=== PATIENT | female | born 1965 | race Caucasian/White ===

== ENCOUNTER 2017-11-13 12:29 | Inpatient (IN) ==
[2017-11-13] MEDS ORDERED: Ipratropium/Albuterol Neb 3 ML IH ONE (13:38)
[2017-11-13] MEDS ORDERED: methylPREDNISolone 125 MG/2 ML VIAL IVP ONE (13:39)
--- NOTE | 2017-11-13 13:42 | Emergency Department Note ---
Disposition Clinical Impression: Acute exacerbation of chronic obstructive airways disease Disposition: Admitted As Inpatient Condition: Undetermined General Adult HPI - General Chief complaint: ED Shortness of Breath/Dyspnea Stated complaint: "Cough,MARIO ALBERTO" Time Seen by Provider: 11/13/17 13:27 - History of Present Illness Pain Scale: 7 - Related Data Home Medications Medication Instructions Recorded Confirmed Albuterol Neb [Proventil Neb] 2.5 mg IH Q4HR PRN 10/15/16 11/13/17 Albuterol Sulfate [Albuterol 2 puff IH Q4HR PRN 10/15/16 11/13/17 Inhaler] Furosemide [Lasix] 20 mg PO DAILY 03/08/17 11/13/17 Lisinopril-HCTZ 20-12.5 [Prinzide 2 tab PO DAILY 03/08/17 11/13/17 20-12.5] Metoprolol Succinate 100 mg PO DAILY 03/08/17 11/13/17 Oxycodone HCl 5 mg PO BID PRN 03/08/17 11/13/17 Aspirin Enteric Coated [Aspirin EC] 325 mg PO DAILY 11/13/17 11/13/17 Latanoprost [Xalatan] 1 drop BOTH EYES DAILY 11/13/17 11/13/17 Sertraline [Zoloft] 25 mg PO DAILY 11/13/17 11/13/17 Allergies Allergy/AdvReac Type Severity Reaction Status Date / Time Penicillins Allergy Hives Verified 11/13/17 15:41 Past Medical History - Past Medical History Medical history: Reports: COPD, hypertension, other Surgical history: Reports: , hysterectomy, orthopedic, other, other Psychiatric history: Reports: depression [employer] history: Reports: bilateral tubal ligation - Social History Smoking Status: Current every day smoker Smokeless Tobacco Status: No Alcohol use: Reports: none Drug use: Reports: none Course Vital Signs Temperature 98.4 F 11/13/17 12:55 Pulse Rate 96 11/13/17 12:55 Respiratory Rate 20 11/13/17 12:55 Blood Pressure 186/120 11/13/17 12:55 O2 Sat by Pulse Oximetry 95 11/13/17 12:55 Temperature 98.4 F 11/13/17 12:58 Pulse Rate 111 11/13/17 15:38 Respiratory Rate 18 11/13/17 15:38 Blood Pressure 158/90 11/13/17 15:38 O2 Sat by Pulse Oximetry 94 11/13/17 15:38 Oxygen Delivery Oxygen Delivery Aerosol Mask Medical Decision Making - Lab Data Result diagrams: 11/13/17 14:11 11/13/17 14:11 Lab Results 11/13/17 11/13/17 11/13/17 Range/Units 14:08 14:11 14:11 WBC 7.6 (4.3-11.1) K/mcL RBC 4.90 (3.82-4.97) M/mcL Hgb 14.1 (11.5-15.4) g/dL Hct 43.2 (35.3-44.9) % MCV 88.2 (83.0-100.0) fL MCH 28.8 (28.0-33.3) pg MCHC 32.6 (31.6-35.5) g/dL RDW 13.4 (11.5-14.5) % Plt Count 211 (140-400) K/mcL MPV 9.6 (9.4-12.4) fL Immature Gran % 0.4 (0-4) % Seg Neutrophils % 65.7 % Lymphocytes % 27.0 % Monocytes % 4.5 % Eosinophils % 1.7 % Basophils % 0.7 % Neutrophils # 5.0 (1.6-8.9) K/mcL Lymphocytes # 2.1 (0.6-4.6) K/mcL Monocytes # 0.3 (0.0-1.3) K/mcL Eosinophils # 0.1 (0.0-0.6) K/mcL Basophils # 0.1 (0.0-0.2) K/mcL Sodium 141 (136-145) mEq/L Potassium 3.4 L (3.5-5.1) mEq/L Chloride 102 (98-107) mEq/L Carbon Dioxide 32 H (23-29) mEq/L BUN 7 (6-20) mg/dL Creatinine 0.62 (0.60-1.20) mg/dL Est GFR ( Amer) > 60 (> 60) Est GFR (Non-Af Amer) > 60 (> 60) BUN/Creatinine Ratio 11 (6-26) Glucose 133 H (70-105) mg/dL Calculated Osmolality 292 (280-300) Lactic Acid 1.2 (0.5-2.2) mmol/L Calcium 9.3 (8.6-10.3) mg/dL Troponin I < 0.03 (< 0.04) ng/mL B-Natriuretic Peptide (Less than 100) pg/mL 11/13/17 Range/Units 14:11 WBC (4.3-11.1) K/mcL RBC (3.82-4.97) M/mcL Hgb (11.5-15.4) g/dL Hct (35.3-44.9) % MCV (83.0-100.0) fL MCH (28.0-33.3) pg MCHC (31.6-35.5) g/dL RDW (11.5-14.5) % Plt Count (140-400) K/mcL MPV (9.4-12.4) fL Immature Gran % (0-4) % Seg Neutrophils % % Lymphocytes % % Monocytes % % Eosinophils % % Basophils % % Neutrophils # (1.6-8.9) K/mcL Lymphocytes # (0.6-4.6) K/mcL Monocytes # (0.0-1.3) K/mcL Eosinophils # (0.0-0.6) K/mcL Basophils # (0.0-0.2) K/mcL Sodium (136-145) mEq/L Potassium (3.5-5.1) mEq/L Chloride (98-107) mEq/L Carbon Dioxide (23-29) mEq/L BUN (6-20) mg/dL Creatinine (0.60-1.20) mg/dL Est GFR ( Amer) (> 60) Est GFR (Non-Af Amer) (> 60) BUN/Creatinine Ratio (6-26) Glucose (70-105) mg/dL Calculated Osmolality (280-300) Lactic Acid (0.5-2.2) mmol/L Calcium (8.6-10.3) mg/dL Troponin I (< 0.04) ng/mL B-Natriuretic Peptide 23 (Less than 100) pg/mL Critical Care Time Critical Care Time: Yes Total Critical Care Time: 35 Attestation: Critical care performed: Time is exclusive of separately billable procedures. Time includes: direct patient care, patient reassessment, coordination of patient care, interpretation of data (laboratory data, radiology data, and respiratory data), review of patient's medical records, medical consultation and documentation of patient care. Procedures included in critical care time: Procedures excluded from critical care time: Attestation Statement - Attestation Attestation: I examined this patient and my medical decision-making was reviewed with the Resident Physician. I agree with the documented findings, disposition and treatment plan as described except to the extent set forth below. Patient to the ED complaining of cough swelling shortness of breath. Onset last Monday. Patient states she was working at the [employer] all week. She has had a cough productive of white phlegm. Swelling her feet that she thinks is from being on them in the heat. No cardiac history but she does currently have a loop recorder. On examination she has diffuse expiratory wheezing. Mild edema around her ankles. Plan. Cardiac workup. Two-view chest x-ray. steroids and reevaluate. Patient better after nebs and steroids. Still hypoxic on room air. Admitted to medicine. Chest X-Ray 11/13/17 13:39 IMPRESSION: 1. No active pulmonary disease. 2. Stable cardiomegaly without overt failure. D/ / Suresh Odom MD / Suresh Odom MD Interpreting Provider: Suresh Odom MD
--- NOTE | 2017-11-13 14:04 | Emergency Department Note ---
Disposition Clinical Impression: Acute exacerbation of chronic obstructive airways disease Disposition: Admitted As Inpatient Condition: Undetermined Referrals: Shannon Bourgeois DO [Primary Care Provider] - Forms: ED Satisfaction Letter Time of Disposition: 15:42 SOB HPI - General Chief Complaint: ED Shortness of Breath/Dyspnea Stated Complaint: "Cough,MARIO ALBERTO" Time Seen by Provider: 11/13/17 13:27 Source: patient Mode of arrival: ambulatory Limitations: no limitations Nursing Notes Reviewed: Yes Vital Signs Reviewed: Yes - History of Present Illness 51-year-old female with history of COPD arrives to the emergency department complaining of shortness of breath times the past few days. She has some associated chest pain as well. The patient states that she has a history of COPD and states this is very similar to her COPD exacerbations in the past. The patient states that she has been coughing up white sputum as well. The patient has some exertional component of this as well as some left-sided chest discomfort. The patient does have bilateral lower extremity edema that is new as well. The patient denies any hemoptysis, unilateral [place], recent surgeries or immobilizations, history of DVT or PE. The patient is resting comfortably in the room after receiving a DuoNeb. The patient said she is feeling much better at this time. The patient was mildly hypoxic upon initial evaluation but resting comfortably on room air this time. - Related Data Home Medications Medication Instructions Recorded Confirmed Albuterol Neb [Proventil Neb] 2.5 mg IH Q4HR PRN 10/15/16 11/13/17 Albuterol Sulfate [Albuterol 2 puff IH Q4HR PRN 10/15/16 11/13/17 Inhaler] Furosemide [Lasix] 20 mg PO DAILY 03/08/17 11/13/17 Lisinopril-HCTZ 20-12.5 [Prinzide 2 tab PO DAILY 03/08/17 11/13/17 20-12.5] Metoprolol Succinate 100 mg PO DAILY 03/08/17 11/13/17 Oxycodone HCl 5 mg PO BID PRN 03/08/17 11/13/17 Aspirin Enteric Coated [Aspirin EC] 325 mg PO DAILY 11/13/17 11/13/17 Latanoprost [Xalatan] 1 drop BOTH EYES DAILY 11/13/17 11/13/17 Sertraline [Zoloft] 25 mg PO DAILY 11/13/17 11/13/17 Allergies Allergy/AdvReac Type Severity Reaction Status Date / Time Penicillins Allergy Hives Verified 11/13/17 15:41 All systems ED: reviewed and negative except as stated. Constitutional: Reports: weakness. Denies: fever, chills ENT ED: Denies: dysphagia Cardiovascular: Reports: chest pain, dyspnea on exertion, orthopnea, edema Respiratory: Reports: cough, dyspnea, wheezes, sputum production Gastrointestinal: Denies: abdominal pain, nausea, vomiting Genitourinary: Denies: urgency, dysuria Musculoskeletal: Denies: back pain, neck pain Integumentary: Denies: rash Neurological: Denies: headache Past Medical History - Past Medical History Attestation: Yes The following information was validated with the patient. Source: patient, old records reviewed Medical history: Reports: COPD, hypertension, other Surgical history: Reports: , hysterectomy, orthopedic, other, other Psychiatric history: Reports: depression [employer] history: Reports: bilateral tubal ligation - Social History Smoking Status: Current every day smoker Smokeless Tobacco Status: No Alcohol use: Reports: none Drug use: Reports: none Physical Exam - General Limitations: no limitations General appearance: alert, in distress (mild respiratory) - Head Head exam: atraumatic, normocephalic, normal inspection - Eye Eye exam: Present: normal appearance, PERRL, EOMI - ENT ENT exam: normal exam, normal oropharynx, mucous membranes moist - Neck Neck exam: Present: normal inspection, full ROM, trachea midline - Chest Chest inspection: Present: normal inspection, symmetric chest wall rise - Respiratory Respiratory exam: Present: respiratory distress (mild), wheezes (diffuse) - Cardiovascular Cardiovascular exam: Present: regular rate, normal rhythm, normal heart sounds - Abdominal Exam Abdominal exam: Present: soft, Non-Tender. Absent: tenderness, distention, guarding, rebound, rigidity - Extremities Exam Extremities exam: Present: normal inspection, full ROM, pedal edema (2+). Absent: tenderness - Neurological Exam Neurological exam: Present: alert, oriented X3 - Skin Skin exam: Present: warm, dry, intact, normal color Course Vital Signs Temperature 98.4 F 11/13/17 12:55 Pulse Rate 96 11/13/17 12:55 Respiratory Rate 20 11/13/17 12:55 Blood Pressure 186/120 11/13/17 12:55 O2 Sat by Pulse Oximetry 95 11/13/17 12:55 Temperature 98.4 F 11/13/17 12:58 Pulse Rate 111 11/13/17 15:38 Respiratory Rate 18 11/13/17 15:38 Blood Pressure 158/90 11/13/17 15:38 O2 Sat by Pulse Oximetry 94 11/13/17 15:38 Oxygen Delivery Oxygen Delivery Aerosol Mask Shortness of Breath/Dyspnea - [facility] Narrative Medical decision making narrative: Patient's workup in the emergency department demonstrates findings consistent with COPD exacerbation. The patient's pulse ox was 85% on room air when evaluated on reevaluation. Given the patient's low pulse ox and symptoms, we will admit the patient to the hospital at this time. Accepted by Dr. Quijano. - Lab Data Lab results reviewed: Yes I reviewed the patient's lab results. Result diagrams: 11/13/17 14:11 11/13/17 14:11 Lab Results 11/13/17 11/13/17 11/13/17 Range/Units 14:08 14:11 14:11 WBC 7.6 (4.3-11.1) K/mcL RBC 4.90 (3.82-4.97) M/mcL Hgb 14.1 (11.5-15.4) g/dL Hct 43.2 (35.3-44.9) % MCV 88.2 (83.0-100.0) fL MCH 28.8 (28.0-33.3) pg MCHC 32.6 (31.6-35.5) g/dL RDW 13.4 (11.5-14.5) % Plt Count 211 (140-400) K/mcL MPV 9.6 (9.4-12.4) fL Immature Gran % 0.4 (0-4) % Seg Neutrophils % 65.7 % Lymphocytes % 27.0 % Monocytes % 4.5 % Eosinophils % 1.7 % Basophils % 0.7 % Neutrophils # 5.0 (1.6-8.9) K/mcL Lymphocytes # 2.1 (0.6-4.6) K/mcL Monocytes # 0.3 (0.0-1.3) K/mcL Eosinophils # 0.1 (0.0-0.6) K/mcL Basophils # 0.1 (0.0-0.2) K/mcL Sodium 141 (136-145) mEq/L Potassium 3.4 L (3.5-5.1) mEq/L Chloride 102 (98-107) mEq/L Carbon Dioxide 32 H (23-29) mEq/L BUN 7 (6-20) mg/dL Creatinine 0.62 (0.60-1.20) mg/dL Est GFR ( Amer) > 60 (> 60) Est GFR (Non-Af Amer) > 60 (> 60) BUN/Creatinine Ratio 11 (6-26) Glucose 133 H (70-105) mg/dL Calculated Osmolality 292 (280-300) Lactic Acid 1.2 (0.5-2.2) mmol/L Calcium 9.3 (8.6-10.3) mg/dL Troponin I < 0.03 (< 0.04) ng/mL B-Natriuretic Peptide (Less than 100) pg/mL 11/13/17 Range/Units 14:11 WBC (4.3-11.1) K/mcL RBC (3.82-4.97) M/mcL Hgb (11.5-15.4) g/dL Hct (35.3-44.9) % MCV (83.0-100.0) fL MCH (28.0-33.3) pg MCHC (31.6-35.5) g/dL RDW (11.5-14.5) % Plt Count (140-400) K/mcL MPV (9.4-12.4) fL Immature Gran % (0-4) % Seg Neutrophils % % Lymphocytes % % Monocytes % % Eosinophils % % Basophils % % Neutrophils # (1.6-8.9) K/mcL Lymphocytes # (0.6-4.6) K/mcL Monocytes # (0.0-1.3) K/mcL Eosinophils # (0.0-0.6) K/mcL Basophils # (0.0-0.2) K/mcL Sodium (136-145) mEq/L Potassium (3.5-5.1) mEq/L Chloride (98-107) mEq/L Carbon Dioxide (23-29) mEq/L BUN (6-20) mg/dL Creatinine (0.60-1.20) mg/dL Est GFR ( Amer) (> 60) Est GFR (Non-Af Amer) (> 60) BUN/Creatinine Ratio (6-26) Glucose (70-105) mg/dL Calculated Osmolality (280-300) Lactic Acid (0.5-2.2) mmol/L Calcium (8.6-10.3) mg/dL Troponin I (< 0.04) ng/mL B-Natriuretic Peptide 23 (Less than 100) pg/mL - Radiology Data Radiology results reviewed: Yes I reviewed the patient's radiology results. Chest X-Ray 11/13/17 13:39 IMPRESSION: 1. No active pulmonary disease. 2. Stable cardiomegaly without overt failure. D/ / Suresh Odom MD / Suresh Odom MD Interpreting Provider: Suresh Odom MD - EKG Data EKG attestation: Yes I reviewed and interpreted this EKG. EKG results narrative: Heart rate 85 bpm. Normal sinus rhythm. No ST elevation or ST depression. No acute changes noted.
[2017-11-13 14:22] LABS: Basophils # 0.1 K/mcL (0.0-0.2); Basophils % 0.7 %; Eosinophils # 0.1 K/mcL (0.0-0.6); Eosinophils % 1.7 %; Hematocrit 43.2 % (35.3-44.9); Hemoglobin 14.1 g/dL (11.5-15.4); Immature Granulocytes % 0.4 % (0-4); Lymphocytes # 2.1 K/mcL (0.6-4.6); Mean Corpuscular HGB Conc 32.6 g/dL (31.6-35.5); Mean Corpuscular Hemoglobin 28.8 pg (28.0-33.3); Mean Corpuscular Volume 88.2 fL (83.0-100.0); Mean Platelet Volume 9.6 fL (9.4-12.4); Monocytes # 0.3 K/mcL (0.0-1.3); Monocytes % 4.5 %; Platelet Count 211 K/mcL (140-400); Red Cell Distribution Width 13.4 % (11.5-14.5); Segmented Neutrophils % 65.7 %
[2017-11-13 14:38] LABS: BUN/Creatinine Ratio 11 (6-26); Blood Urea Nitrogen 7 mg/dL (6-20); Calcium 9.3 mg/dL (8.6-10.3); Carbon Dioxide 32 mEq/L (23-29); Chloride 102 mEq/L (98-107); Glucose 133 mg/dL (70-105); Osmolality,Calculated 292 (280-300); Potassium 3.4 mEq/L (3.5-5.1); Sodium 141 mEq/L (136-145); eGFR For Non-African Americans > 60 (> 60)
[2017-11-13 14:39] LABS: Troponin I < 0.03 ng/mL (< 0.04)
[2017-11-13] MEDS ORDERED: Azithromycin 500 MG in D5% in Water 250 ML IVPB ONE (15:38)
[2017-11-13] MEDS ORDERED: Naloxone 0.4 MG/ML INJ IVP PRN (16:27)
--- NOTE | 2017-11-13 16:56 | Internal Med History&Physical ---
<Jerson Alcantar P - Last Filed: 11/13/17 16:49> Date of Encounter: 11/13/17 Time of Encounter: 16:05 Internal Medicine - H&P: HPI Chief complaint: Shortness of breath Admitted From: Home Plans for Post Hospital Care: Home History of present illness: Ms. Vernon is a 51 year old female who presents from home for complaints of shortness of breath for past week getting progressively worse. States shortness of breath has improved since breathing treatment in ER. Also complains of productive cough with white phlegm and chest pain with cough especially around heart recorder that she states was placed following her stroke one year ago. Denies any chest pain without cough. 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 States she is a current one pack per day smoker. Past Med Surg Social Fam HX - Past Medical History Medical history: COPD, hypertension, other Additional medical history: Crohn's disease Psychiatric history: depression - Past Surgical History Surgical History: , hysterectomy, orthopedic, other, other Additional surgical history: hernia repair. T&A - Social History Smoking Status: Current every day smoker Smokeless Tobacco Status: No Alcohol use: none Drug use: none Internal Medicine - H&P: Meds Albuterol Neb [Proventil Neb] 2.5 mg IH Q4HR PRN 10/15/16 [History] Albuterol Sulfate [Albuterol Inhaler] 2 puff IH Q4HR PRN 10/15/16 [History] Furosemide [Lasix] 20 mg PO DAILY 03/08/17 [History] Lisinopril-HCTZ 20-12.5 [Prinzide 20-12.5] 2 tab PO DAILY 03/08/17 [History] Metoprolol Succinate 100 mg PO DAILY 03/08/17 [History] Oxycodone HCl 5 mg PO BID PRN 03/08/17 [History] Aspirin Enteric Coated [Aspirin EC] 325 mg PO DAILY 11/13/17 [History] Latanoprost [Xalatan] 1 drop BOTH EYES DAILY 11/13/17 [History] Sertraline [Zoloft] 25 mg PO DAILY 11/13/17 [History] 3 Allergy/AdvReac Type Severity Reaction Status Date / Time Penicillins Allergy Hives Verified 11/13/17 15:41 All Systems PM: A 10-system review of systems was performed and is negative for pertinent findings except as documented above in the HPI. - Constitutional Vitals: Temp Pulse Resp BP Pulse Ox 98.3 F 88 18 163/92 94 11/13/17 16:01 11/13/17 16:01 11/13/17 16:01 11/13/17 16:01 11/13/17 16:01 Exam: General: Alert and oriented, in no acute distress. Skin:Normal color, no rash, no lesions. HEENT:EOM, pupils equal, round and reactive. Cardiovascular:Normal S1 & S2, no rubs, murmurs or gallops. No JVD. Pulse regular. Lungs:Breath sounds diminished with wheezing noted throughout. Abdomen:Soft, no rigidity, mild tenderness (at baseline). Extremities:No deformity, no tenderness, bilateral lower extremity non pitting edema noted with left slightly worse than right which she states is typical for her. Neurological:Normal cognition and motor skills. Pulses:Carotid and radial pulses normal +2. Rest of the physical exam is non contributory. Internal Med - H&P Results - Labs CBC & Chem 7: 11/13/17 14:11 11/13/17 14:11 - Assessment and plan (1) Acute exacerbation of chronic obstructive airways disease Current Visit: Yes Status: Acute Assessment and plan: Azithromycin started in ER, will continue same. Initial dose of solumedrol in ER, will continue q6 hours. Initial duoneb in ER, will continue q4 hours. Respiratory therapy ordered. Oxygen 2lpm nasal canula to maintain saturation above 92%. Continuous cardiac monitoring. Repeat labs in a.m. (2) Low blood potassium Current Visit: Yes Status: Acute Assessment and plan: BMP showed 3.4 potassium, will replace x1, recheck level in a.m. - Time Spent With Patient Total time spent is greater than 50% in coordination of care (as documented) at patient's floor/unit and/or counseling patient: <DhruvAnnamaria you - Last Filed: 11/13/17 18:19> Date of Encounter: 11/13/17 Internal Medicine - H&P: HPI History of present illness: Ms. Vernon is a 51 year old female Past Med Surg Social Fam HX - Family History Mother Hx Family Cardiac Disorders: Yes (CABG HTN) Hx Family Endocrine Disorder: Yes (DM) Father Living Status: Hx Family Cancer: Yes (mestatic) All Systems PM: A 10-system review of systems was performed and is negative for pertinent findings except as documented above in the HPI. - Constitutional Vitals: Temp Pulse Resp BP Pulse Ox 98.5 F 85 15 170/97 92 11/13/17 17:12 11/13/17 17:12 11/13/17 17:12 11/13/17 17:12 11/13/17 17:12 Internal Med - H&P Results - Labs CBC & Chem 7: 11/13/17 14:11 11/13/17 14:11 - Attending Attestation I have personally performed a face to face evaluation on this patient. I have reviewed and agree with the care plan provided by ALDA Alcantar . History and Exam by me shows: Ms. Vernon is 51 y/o F admitted with COPD exacerbation. She did c/o cough with expectoration. Denied any CP. Gen: A, A, O x 3 Chest: Diminished BS, moderate wheezing, no crackles, not in distress Heart: S1S2+ RRR a/p 1. Acute bronchitis - mostly bacterial 2. Acute COPD exacerbation Duoneb and O2 abx Azithromycin IV steroids 3. HTN resumed home meds 4. Chronic diastolic CHF not in exacerbation resumed home meds 5. Tobacco dependence counseled to quit smoking pt refused nicotine patch - Assessment and plan (1) Acute exacerbation of chronic obstructive airways disease Current Visit: Yes Status: Acute (2) Low blood potassium Current Visit: Yes Status: Acute - Time Spent With Patient Total time spent is greater than 50% in coordination of care (as documented) at patient's floor/unit and/or counseling patient:
[2017-11-13] MEDS ORDERED: *HR* OxyCODONE Immed Rel 5 MG TABLET PO PRN (17:10)
[2017-11-13] MEDS: Furosemide 20 MG TABLET PO SCH (17:33)
[2017-11-13] MEDS: Ipratropium/Albuterol Neb 3 ML IH SCH ×2 (20:01→23:31)
[2017-11-13] MEDS: MethylPREDNISolone 40 MG/ML VIAL IVP SCH (20:38)
[2017-11-13] MEDS ORDERED: Ondansetron ODT 4 MG TAB.RAPDIS SL PRN (20:52)
[2017-11-14] MEDS: Ipratropium/Albuterol Neb 3 ML IH SCH ×6 (03:51→22:58)
[2017-11-14] MEDS: MethylPREDNISolone 40 MG/ML VIAL IVP SCH ×3 (05:38→17:14)
[2017-11-14 07:10] LABS: Basophils % 0.2 %; Hematocrit 42.2 % (35.3-44.9); Immature Granulocytes % 0.7 % (0-4); Mean Corpuscular HGB Conc 33.2 g/dL (31.6-35.5); Mean Corpuscular Hemoglobin 28.2 pg (28.0-33.3); Mean Corpuscular Volume 85.1 fL (83.0-100.0); Mean Platelet Volume 9.6 fL (9.4-12.4); Monocytes # 0.2 K/mcL (0.0-1.3); Monocytes % 1.4 %; Platelet Count 243 K/mcL (140-400); Red Blood Count 4.96 M/mcL (3.82-4.97); Red Cell Distribution Width 13.4 % (11.5-14.5); Segmented Neutrophils % 89.7 %
[2017-11-14 07:26] LABS: BUN/Creatinine Ratio 16 (6-26); Blood Urea Nitrogen 11 mg/dL (6-20); Calcium 9.4 mg/dL (8.6-10.3); Carbon Dioxide 28 mEq/L (23-29); Chloride 102 mEq/L (98-107); Glucose 273 mg/dL (70-105); Osmolality,Calculated 295 (280-300); Potassium 4.2 mEq/L (3.5-5.1); Sodium 138 mEq/L (136-145); eGFR For Non-African Americans > 60 (> 60)
[2017-11-14 07:30] LABS: Neutrophils # 10.9 K/mcL (1.6-8.9)
[2017-11-14] MEDS ORDERED: Isovue-370 500 ML INFUS..BTL IV ONE (08:48)
--- NOTE | 2017-11-14 08:54 | Internal Med Progress Note ---
Hospitalist Progress Note - Encounter Date of Encounter: 11/14/17 Time of Encounter: 08:55 - Subjective Interval History: Seen and examined at bedside. Patient is new to me, information obtained from chart review and patient report. Says she feels only a little better from when she arrived to the ED. Still has shortness of breath that is worse with exertion and productive cough. Says she would like to go home today however she is agreeable to stay overnight for any IV steroids and antibiotic. She complains of a headache which he thinks is secondary to her high blood pressure. - Exam Vitals: Temp Pulse Resp BP Pulse Ox 97.7 F 90 19 184/102 92 11/14/17 08:11 11/14/17 08:11 11/14/17 08:11 11/14/17 08:11 11/14/17 08:11 Exam: General: Alert and oriented, in no acute distress. Skin:Normal color, no rash, no lesions. HEENT:EOM, pupils equal, round and reactive. Cardiovascular:Normal S1 & S2, no rubs, murmurs or gallops. No JVD. Pulse regular. Lungs:Breath sounds diminished with wheezing noted throughout. Abdomen:Soft, no rigidity, , obese, mild tenderness which patient says is due to cough. Extremities:No deformity, no tenderness, bilateral lower extremity non pitting edema noted with left slightly worse than right which she states is typical for her. Neurological:Normal cognition and motor skills. Pulses:Carotid and radial pulses normal +2. Rest of the physical exam is non contributory. - Assessment and Plan (1) Acute respiratory failure with hypoxia Current Visit: Yes Status: Acute Assessment and Plan: presented with SOB and cough. Oxygen saturation dropped to 85% on room air in the ED. I personally ambulated patient with continuous pulse ox and oxygen saturation dropped to 87% with conversational dyspnea. Suspect secondary to COPD exacerbation however she is also found to be tachycardic. Patient also reported history of DVT in the past after left leg surgery. Continue treating COPD has noted below. Continue supplemental oxygen, wean as able. Chest CTA pending to rule out pulmonary embolism. (2) Acute exacerbation of chronic obstructive airways disease Current Visit: Yes Status: Acute Assessment and Plan: Has known COPD. Current smoker. Presented with SOB and cough. Symptoms consistent with COPD exacerbation. Received high-dose IV steroids and azithromycin in ED. Cont IV azithromycin, steroids, nebs (3) Low blood potassium Current Visit: Yes Status: Acute Assessment and Plan: Monitor and replace PRN (4) History of venous thromboembolism Current Visit: Yes Status: Acute Assessment and Plan: Patient reported history of DVT after left leg surgery. Was treated with Lovenox and Coumadin at that time. (5) HTN (hypertension) Current Visit: No Status: Acute Assessment and Plan: per hx. BP uncontrolled. Continue home BP medication. Add PRN drowsing. Monitor BP and titrate PRN (6) Smoker Current Visit: No Status: Acute Assessment and Plan: Current smoker, cessation advised DVT Prophylaxis: heparin - Time Spent with Patient Total time spent is greater than 50% in coordination of care (as documented) at patient's floor/unit and/or counseling patient: Internal Medicine: Result - Labs CBC & Chem 7: 11/14/17 06:52 11/14/17 06:52 Labs: Short CBC 11/14/17 Range/Units 06:52 WBC 12.1 H D (4.3-11.1) K/mcL Hgb 14.0 (11.5-15.4) g/dL Hct 42.2 (35.3-44.9) % Plt Count 243 (140-400) K/mcL Neutrophils # 10.9 H (1.6-8.9) K/mcL BMP 11/14/17 06:52 Sodium 138 Potassium 4.2 Chloride 102 Carbon Dioxide 28 BUN 11 Creatinine 0.69 Glucose 273 H Calcium 9.4 Consult Discharge Plan - Plan Referrals: Shannon Bourgeois, [Primary Care Provider] - (5) HTN (hypertension) Qualifiers: Hypertension type: essential hypertension Qualified Code(s): I10 - Essential (primary) hypertension
[2017-11-14] MEDS: Aspirin Enteric Coated 325 MG Tablet PO SCH (10:39)
[2017-11-14] MEDS: Metoprolol XL (24 HR) Succ 50 MG TAB.ER.24H PO SCH (10:39)
[2017-11-14] MEDS: Furosemide 20 MG TABLET PO SCH (10:39)
[2017-11-14] MEDS: Lisinopril-HCTZ 20-12.5mg TABLET PO SCH (10:39)
[2017-11-14] MEDS ORDERED: Azithromycin 500 MG in D5% in Water 250 ML IVPB SCH (11:00)
[2017-11-14] MEDS: Latanoprost 2.5 ML BOTTLE BOTH EYES SCH (11:16)
[2017-11-14] MEDS: *HR* Heparin 5,000 UNIT/ML VIAL SQ SCH ×2 (14:05→21:08)
--- NOTE | 2017-11-14 17:49 | Electrocardiograph Report ---
[address] [address] Test Date: 2017-11-13 Pat Name: Bushra Vernon Department: Room: [facility] Gender: F Relocation Commissioner: : [id number] Requested By: Jelena See Order Number: [id number] Reading MD: Sadie Herrmann Measurements Intervals [place] Rate: 85 P: 65 GA: 202 QRS: 47 QRSD: 102 T: 61 QT: 400 QTc: 476 Interpretive Statements Sinus rhythm Borderline prolonged GA interval Electronically Signed On 11-14-2017 17:47:13 EDT by Sadie Herrmann
--- NOTE | 2017-11-14 21:30 | Event Note ---
Date of Encounter: 11/14/17 Time of Encounter: 21:16 Notified by pts. nurse WILLIE Hayes that pt. appeared to be having an allergic skin rxn that was similar to [place] syndrome. Went to see pt. who was resting comfortably in bed. Skin was pink on face, chest, and bilateral arms. Pt. stated her face felt warm but denied SOB, throat swelling, difficulty swallowing. States she has a mild sore throat that began when she was placed on O2 earlier in the day. Azithromycin given in a.m. and pt. states she has had this abx before. No other medications given recently. Order for 50 mg IVP Benadryl given w/instructions for nurse to monitor pt. closely.
[2017-11-15] MEDS: MethylPREDNISolone 40 MG/ML VIAL IVP SCH ×3 (00:11→10:54)
[2017-11-15 01:44] LABS: Adenovirus Not Detected (Not Detect); Bordetella Pertussis Not Detected (Not Detect); Chlamydophila pneumoniae Not Detected (Not Detect); Coronavirus 229E Not Detected (Not Detect); Coronavirus HKU1 Not Detected (Not Detect); Coronavirus NL63 Not Detected (Not Detect); Coronavirus OC43 Not Detected (Not Detect); Human Metapneumovirus Not Detected (Not Detect); Human Rhinovirus/Enterovirus DETECTED (Not Detect); Influenza A Subtype 2009 H1 Not Detected (Not Detect); Influenza A Untypeable Not Detected (Not Detect); Influenza B Not Detected (Not Detect); Mycoplasma pneumoniae Not Detected (Not Detect); Parainfluenza Virus 1 Not Detected (Not Detect); Parainfluenza Virus 2 Not Detected (Not Detect); Parainfluenza Virus 3 Not Detected (Not Detect); Parainfluenza Virus 4 Not Detected (Not Detect); Respiratory Syncytial Virus Not Detected (Not Detect)
[2017-11-15] MEDS: Ipratropium/Albuterol Neb 3 ML IH SCH ×3 (04:13→11:04)
[2017-11-15] MEDS: *HR* Heparin 5,000 UNIT/ML VIAL SQ SCH ×2 (05:07→13:24)
[2017-11-15 06:12] LABS: Hematocrit 44.6 % (35.3-44.9); Hemoglobin 14.2 g/dL (11.5-15.4); Mean Corpuscular HGB Conc 31.8 g/dL (31.6-35.5); Mean Corpuscular Hemoglobin 28.4 pg (28.0-33.3); Mean Corpuscular Volume 89.2 fL (83.0-100.0); Mean Platelet Volume 10.1 fL (9.4-12.4); Platelet Count 261 K/mcL (140-400); Red Cell Distribution Width 13.4 % (11.5-14.5)
[2017-11-15 06:29] LABS: BUN/Creatinine Ratio 26 (6-26); Blood Urea Nitrogen 18 mg/dL (6-20); Calcium 9.8 mg/dL (8.6-10.3); Carbon Dioxide 29 mEq/L (23-29); Chloride 100 mEq/L (98-107); Glucose 318 mg/dL (70-105); Osmolality,Calculated 298 (280-300); Potassium 4.3 mEq/L (3.5-5.1); Sodium 137 mEq/L (136-145); eGFR For Non-African Americans > 60 (> 60)
[2017-11-15] MEDS ORDERED: Lidocaine Viscous Oral Soln 15 ML SOLUTION MM PRN (08:20)
[2017-11-15] MEDS ORDERED: 0.9 % Sodium Chloride 500 ML IVC ONE (08:21)
[2017-11-15] MEDS ORDERED: Tetracaine/Benzocaine/Butamben 200MG/SPRAY (100SPY/BOT) MM ONE (08:21)
[2017-11-15 08:40] VITALS: BP 173/101
[2017-11-15] MEDS: *HR* Midazolam HCl 5 MG/5 ML VIAL IVP PRN ×5 (09:05→09:25)
[2017-11-15] MEDS: *HR* FentaNYL (PF) 100 MCG/2 ML VIAL IVP PRN ×3 (09:05→09:20)
[2017-11-15] MEDS: Lisinopril-HCTZ 20-12.5mg TABLET PO SCH (10:53)
[2017-11-15] MEDS: Furosemide 20 MG TABLET PO SCH (10:54)
[2017-11-15] MEDS: Aspirin Enteric Coated 325 MG Tablet PO SCH (10:54)
[2017-11-15] MEDS: Metoprolol XL (24 HR) Succ 50 MG TAB.ER.24H PO SCH (10:54)
[2017-11-15] MEDS: Latanoprost 2.5 ML BOTTLE BOTH EYES SCH (11:07)
--- NOTE | 2017-11-15 11:36 | Discharge Summary ---
- NOTES TO OUTPATIENT PROVIDER Notes to Outpatient Provider: Recommend routine hospital follow-up Date of Encounter: 11/15/17 Time of Encounter: 11:23 - Discharge Diagnosis (1) Acute respiratory failure with hypoxia Priority: Primary Status: Acute Assessment and Plan: presented with SOB and cough. Oxygen saturation dropped to 85% on room air in the ED. I personally ambulated patient with continuous pulse ox and oxygen saturation dropped to 87% with conversational dyspnea. Chest CTA negative for pulmonary embolism. She was ambulated twice on room air and desaturated to 87% both times qualified her for home oxygen use. Suspect acute respiratory failure secondary to COPD and morbid obesity. She will be discharged home on supplemental oxygen. (2) Acute exacerbation of chronic obstructive airways disease Priority: Primary Status: Acute Assessment and Plan: Has known COPD. Current smoker. Presented with SOB and cough. Symptoms consistent with COPD exacerbation. Received high-dose IV steroids and azithromycin in ED. patient developed diffuse rash that appeared similar to red man syndrome after receiving IV azithromycin (patient did not receive vancomycin ). She was afebrile, no increase in sputum production; will hold on further ATB. Discharge home on steroid burst. Smoking cessation advised. (3) Low blood potassium Priority: Primary Status: Acute Assessment and Plan: Resolved with replacement. (4) History of venous thromboembolism Priority: Secondary Status: Acute Assessment and Plan: Patient reported history of DVT after left leg surgery. Was treated with Lovenox and Coumadin at that time. Chest CTA negative for pulmonary embolism (5) HTN (hypertension) Priority: Primary Status: Acute Assessment and Plan: per hx. BP uncontrolled. Home BP medication continued with addition of amlodipine. Recommend follow-up with PCP within one week for BP recheck Qualifiers: Hypertension type: essential hypertension Qualified Code(s): I10 - Essential (primary) hypertension (6) Smoker Priority: Primary Status: Acute Assessment and Plan: Current smoker, cessation advised (7) CVA (cerebral vascular accident) Priority: Secondary Status: Chronic Assessment and Plan: per patient reported history at [facility] approximately one year ago. Has a Loop recorder. Chest CTA showed a hypodensity to left atrium and 8T EEG was performed to assess for left atrial appendage which was unremarkable however it was weakly positive for a PFO. Advised patient to continue her ASA and follow- up with PCP and or cardiology/whoever is managing loop recorder Qualifiers: CVA mechanism: unspecified Qualified Code(s): I63.9 - Cerebral infarction, unspecified Hospital course: See assessment and plan for hospital course Discharge discussed with: patient (Seen and examined at bedside; says she feels better and wants to go home. Still having some SOB that is worse with exertion but overall improved. She apparently had what looks like "red man" syndrome after receiving azithromycin yesterday. Denies productive cough, no increase in sputum production therefore will hold on further ATB at this time. Patient advised to follow-up with her PCP and who is managing her loop recorder as TTE was weakly positive for PFO. Patient verbalized understanding.) - Time Spent with Patient Total time spent providing and/or coordinating discharge services: - Discharge Medications Prescriptions: amLODIPine [Norvasc] 10 mg PO DAILY #60 tablet predniSONE [PredniSONE] 40 mg PO DAILY #10 tablet Home Medications: Albuterol Neb [Proventil Neb] 2.5 mg IH Q4HR PRN 10/15/16 [History] Albuterol Sulfate [Albuterol Inhaler] 2 puff IH Q4HR PRN 10/15/16 [History] Furosemide [Lasix] 20 mg PO DAILY 03/08/17 [History] Lisinopril-HCTZ 20-12.5 [Prinzide 20-12.5] 2 tab PO DAILY 03/08/17 [History] Metoprolol Succinate 100 mg PO DAILY 03/08/17 [History] Oxycodone HCl 5 mg PO BID PRN 03/08/17 [History] Aspirin Enteric Coated [Aspirin EC] 325 mg PO DAILY 11/13/17 [History] Latanoprost [Xalatan] 1 drop BOTH EYES DAILY 11/13/17 [History] Sertraline [Zoloft] 25 mg PO DAILY 11/13/17 [History] amLODIPine [Norvasc] 10 mg PO DAILY #60 tablet 11/15/17 [Rx] predniSONE [PredniSONE] 40 mg PO DAILY #10 tablet 11/15/17 [Rx] Allergies/Adverse Reactions: 3 Allergy/AdvReac Type Severity Reaction Status Date / Time Penicillins Allergy Hives Verified 11/13/17 15:41 Date of admission: 11/14/17 09:37 Primary care physician: Katya Sanchez Consults: 11/14/17 09:51 Consult to Nurse Navigator [CONS] Routine Comment: COPD Discharging clinician: Marlen Dang Anticipated date of discharge: 11/15/17 - Constitutional Vitals: Temp Pulse Resp BP Pulse Ox 97.8 F 74 16 173/101 90 11/15/17 08:35 11/15/17 08:35 11/15/17 11:05 11/15/17 08:35 11/15/17 11:05 General appearance: Present: A&O X 3, morbidly obese, no acute distress - Head Head exam: Present: atraumatic, normocephalic - Eye Eye exam: Present: PERRL, conjuntiva pink, sclera anicteric Pupils: Present: PERRL - Neck Neck exam general surgery: Present: supple, trachea midline. Absent: lymphadenopathy - Respiratory Respiratory exam: Present: decreased breath sounds, wheezes (Scattered, faint wheezing). Absent: accessory muscle use, rales, rhonchi - Cardiovascular Cardiovascular exam: Present: RRR, +S1, +S2. Absent: diastolic murmur, gallop, rubs, systolic murmur - GI/Abdominal GI/Abdominal exam: Present: normal bowel sounds, soft, no peritoneal signs. Absent: distended, tenderness - Extremities Exam Extremities exam: Present: warm, radial pulses palpable and symmetrical. Absent : calf tenderness, cyanotic, pedal edema - Neurological Exam Neurological exam: Present: CN II-XII intact, oriented X3, no focal deficits. Absent: pronater drift, facial droop, speech deficit - Skin Skin exam: Present: dry, intact - Patient Status Disposition: Home, Self-Care Condition: Good Functional capacity at discharge: independent ambulation Overall status at discharge: patient is progressing back to baseline - Discharge Instructions Instructions: Chronic Obstructive Pulmonary Disease (DC), Prednisone (By mouth) , Using Oxygen at Home (DC), Cigarette Smoking and Your Health (GEN), How to Stop Smoking (DC) Follow Up With: Shannon Bourgeois DO [Primary Care Provider] - 11/21/17 1:30 pm (Please call within one week for follow-up appointment) - Diet and Activity Activity: increase activity as tolerated Diet: low fat, low cholesterol, low salt diet - VTE Documentation of Mechanical Device: Intermittent pneumatic compression device
[2017-11-15] MEDS ORDERED: amLODIPine 5 MG TABLET PO SCH (11:45)
--- NOTE | 2017-11-15 13:06 | Event Note ---
Date of Encounter: 11/15/17 Time of Encounter: 13:05 (1) Acute respiratory failure with hypoxia Priority: Primary Status: Acute Assessment and Plan: presented with SOB and cough. Oxygen saturation dropped to 85% on room air in the ED. I personally ambulated patient with continuous pulse ox and oxygen saturation dropped to 87% with conversational dyspnea. Chest CTA negative for pulmonary embolism. Nebulizers and inhalers utilized however she remained hypoxic on room air. She was ambulated twice on room air and desaturated to 87% both times qualified her for home oxygen use. Suspect acute respiratory failure secondary to COPD and morbid obesity. She will be discharged home on supplemental oxygen.
== END 2017-11-15 14:18 | disposition home or self-care (01) | DRG 190 ==
LOC: EMEROOARM 12:29 → 3BNU 12:29
PROVIDERS: ADMIT Family Medicine; ATTEND Family Medicine

== ENCOUNTER 2019-01-01 14:56 | Observation (INO) ==
[2019-01-01] MEDS ORDERED: Isovue-370 500 ML BOTTLE IVP ONE (15:05)
--- NOTE | 2019-01-01 15:13 | Emergency Department Note ---
Disposition Clinical Impression: Left-sided weakness, Arm paresthesia, left, Facial paresthesia, Leg paresthesia Disposition: Admitted As Inpatient Forms: ED Satisfaction Letter Time of Disposition: 15:50 Neuro HPI - General Chief Complaint: ED Neuro Symptoms/Deficit Stated Complaint: neuro Time Seen by Provider: 01/01/19 14:58 Source: patient Mode of arrival: ambulatory Limitations: no limitations Nursing Notes Reviewed: Yes Vital Signs Reviewed: Yes - History of Present Illness HPI Narrative: 53F with PMHx of CVA last year, HTN, DM and COPD presents to the ED with left- sided arm and leg weakness. Patient states she was getting out of the shower 1 PM when she had some worsening neck pain and has felt like her left side was weaker than normal with some associated paresthesias. Patient states that this is similar to her last stroke but she was unable to move at all on her last CVA. Pt also complains of chronic abdominal pain, nausea and shortness of breath. She denies visual changes and headache. She did not hit her head or have any recent neck trauma. - Related Data Home Medications: Home Medications Medication Instructions Recorded Confirmed Albuterol Neb [Proventil Neb] 2.5 mg IH Q4HR PRN 10/15/16 11/13/17 Albuterol Sulfate [Proventil 2 puff IH Q4HR PRN 10/15/16 11/13/17 Inhaler] Furosemide [Lasix] 20 mg PO DAILY 03/08/17 11/13/17 Lisinopril-HCTZ 20-12.5 [Prinzide 2 tab PO DAILY 03/08/17 11/13/17 20-12.5] Metoprolol Succinate 100 mg PO DAILY 03/08/17 11/13/17 Oxycodone HCl 5 mg PO BID PRN 03/08/17 11/13/17 Aspirin Enteric Coated [Aspirin EC] 325 mg PO DAILY 11/13/17 11/13/17 Latanoprost [Xalatan] 1 drop BOTH EYES DAILY 11/13/17 11/13/17 Sertraline [Zoloft] 25 mg PO DAILY 11/13/17 11/13/17 Previous Rx's Medication Instructions Recorded amLODIPine [Norvasc] 10 mg PO DAILY #60 tablet 11/15/17 predniSONE [PredniSONE] 40 mg PO DAILY #10 tablet 11/15/17 Azithromycin [Azithromycin 6-Tab 250 mg PO PER PKG DI #6 tab 12/27/18 Pack] Benzonatate [Tessalon] 200 mg PO TID #30 capsule 12/27/18 Orphenadrine [Norflex] 100 mg PO Q12HR #6 tablet.er 12/27/18 predniSONE [Prednisone] 50 mg PO DAILY #5 tablet 12/27/18 Allergies/Adverse Reactions: Allergies Allergy/AdvReac Type Severity Reaction Status Date / Time Penicillins Allergy Hives Verified 11/13/17 15:41 NICOTINE STEP Allergy Rash Uncoded 01/24/18 01:53 All systems ED: reviewed and negative except as stated. Review of Systems: As Per HPI Constitutional: Reports: weakness. Denies: fever, chills Eyes: Denies: vision change Cardiovascular: Denies: chest pain, palpitations, dyspnea on exertion Respiratory: Reports: dyspnea. Denies: cough, wheezes Gastrointestinal: Reports: abdominal pain, nausea. Denies: vomiting, diarrhea Genitourinary: Denies: dysuria, hematuria Musculoskeletal: Reports: back pain, neck pain Integumentary: Denies: rash Neurological: Reports: weakness (left sided), paresthesias (left sided). Denies: headache, numbness, confusion, abnormal gait Endocrine: Denies: fatigue Past Medical History - Past Medical History Attestation: Yes The following information was validated with the patient. Source: patient Medical history: Reports: COPD, diabetes, hypertension, other Surgical history: Reports: , cholecystectomy, hysterectomy, orthopedic, other, other Psychiatric history: Reports: depression GARMENT MENDER history: Reports: bilateral tubal ligation - Social History Smoking Status: Current every day smoker Smokeless Tobacco Status: No Alcohol use: Reports: none Drug use: Reports: none Physical Exam - General Limitations: no limitations General appearance: alert, anxious - Head Head exam: atraumatic, normocephalic - Eye Eye exam: Present: normal appearance, PERRL, EOMI - Chest Chest inspection: Present: normal inspection. Absent: tenderness, rash - Respiratory Respiratory exam: Present: wheezes - Cardiovascular Cardiovascular exam: Present: regular rate, normal rhythm - Abdominal Exam Abdominal exam: Present: soft, Non-Tender. Absent: distention, guarding, rebound, rigidity - Extremities Exam Extremities exam: Present: normal inspection. Absent: tenderness, pedal edema - Neurological Exam Neurological exam: Present: alert, oriented X3, CN II-XII intact, motor sensory deficit, other (for further neuro exam refer to NIHSS) - Psychiatric Psychiatric exam: Present: anxious - Skin Skin exam: Present: warm, dry, intact Course Vital Signs Temperature 98.4 F 01/01/19 15:00 Pulse Rate 95 01/01/19 15:00 Respiratory Rate 22 01/01/19 15:00 Blood Pressure 158/112 01/01/19 15:00 O2 Sat by Pulse Oximetry 98 01/01/19 15:00 Temperature 98.4 F 01/01/19 15:00 Pulse Rate 96 01/01/19 15:34 Respiratory Rate 16 01/01/19 15:34 Blood Pressure 147/94 01/01/19 15:34 O2 Sat by Pulse Oximetry 98 01/01/19 15:00 Oxygen Delivery Oxygen Delivery Room Air Neuro Symptoms/Deficit - MDM Narrative Medical decision making narrative: Patient presents emergency department with left-sided deficits onset at 1 PM and arrival to the emergency room at approximately 1450 PM. Stroke alert was called at 1505 PM once patient was noted to have weakness, sensory changes and ataxia on neurologic exam. We will obtain a CT noncontrast prior to administering aspirin to rule out intracranial hemorrhage and also obtain a CTA of the head and neck to rule out cerebral and basilar artery dissections. POC glucose was within normal limits at 140. 1545 - Head CT was read as negative by Dr. Bangura from [facility]. [facility] neurologist evaluated the patient and did not recommend tPA as her deficits were minimal at that time. She is agreeable with admission for further stroke workup but states she cannot receive an MRI due to a nerve stimulator in her neck. Her head CTA and neck CTA did not show evidence of acute artery blockage or dissection. Pt has been accepted by Dr. Galvan for admission. We will give her a breathing treatment for her wheezing, percocet for her back pain and aspirin for the stroke symptoms as she has not taken one at home today. - Medical Records Medical records reviewed: Yes I reviewed the patient's medical records. - Lab Data Lab results reviewed: Yes I reviewed the patient's lab results. Result diagrams: 01/01/19 15:20 01/01/19 15:20 Lab Results 01/01/19 01/01/19 01/01/19 Range/Units 15:20 15:20 15:20 WBC 10.1 (4.3-11.1) K/mcL RBC 4.68 (3.82-4.97) M/mcL Hgb 13.8 (11.5-15.4) g/dL Hct 42.5 (35.3-44.9) % MCV 90.8 (83.0-100.0) fL MCH 29.5 (28.0-33.3) pg MCHC 32.5 (31.6-35.5) g/dL RDW 13.4 (11.5-14.5) % Plt Count 216 (140-400) K/mcL MPV 9.6 (9.4-12.4) fL PT 10.9 (9.4-12.1) Seconds INR 1.0 APTT 32.0 (26.0-36.0) Seconds Sodium 135 L (136-145) mEq/L Potassium 3.6 (3.5-5.1) mEq/L Chloride 101 (98-107) mEq/L Carbon Dioxide 27 (23-29) mEq/L BUN 14 (6-20) mg/dL Creatinine 0.71 (0.60-1.20) mg/dL Est GFR ( Amer) > 60 (> 60) Est GFR (Non-Af Amer) > 60 (> 60) BUN/Creatinine Ratio 20 (6-26) Glucose 146 H (70-105) mg/dL Calculated Osmolality 283 (280-300) Calcium 9.4 (8.6-10.3) mg/dL Troponin I < 0.03 (< 0.04) ng/mL - Radiology Data Radiology results reviewed: Yes I reviewed the patient's radiology results. - EKG Data EKG attestation: Yes I reviewed and interpreted this EKG. EKG results narrative: EKG obtained at 1504 Heart rate 99 bpm, FL interval 200, QRS duration 95, QT 356, QTC 457 [address] rhythm with no ST segment elevations or depressions. No acute T-wave abnormalities. Intervals are appropriate. No significant changes when compared to previous EKG dated 12/27/2018. NIH Stroke Scale - Level of Consciousness LOC: Alert - LOC Questions LOC Questions: Answers both correctly - LOC Commands LOC Commands: Performs both correctly - Best Gaze Best Gaze: Normal - Visual Visual: No visual loss - Facial Palsy Facial Palsy: Normal - Motor Arms Motor Arm-Left: No drift for 10 seconds Motor Arm-Right: Drift, does NOT hit bed - Motor Legs Motor Leg-Left: No drift for 5 seconds Motor Leg-Right: Drift, does NOT hit bed - Limb Ataxia Limb Ataxia: Present in TWO limbs - Sensory Sensory: Mild to moderate loss, "not as sharp" - Best Language Best Language: No aphasia - Dysarthria Dysarthria: Normal - Extinction and Inattention Extinction and Inattention: Normal - NIHSS Total Score NIHSS Total Score: 5 TPA Checklist - LKW: 3-4.5 hrs Add. Warnings/Precautions Patient/family understanding: The patient/family members have been counseled and understood the risk, benefit, and alternatives of treatment.
[2019-01-01 15:34] LABS: Hematocrit 42.5 % (35.3-44.9); Hemoglobin 13.8 g/dL (11.5-15.4); Mean Corpuscular HGB Conc 32.5 g/dL (31.6-35.5); Mean Corpuscular Hemoglobin 29.5 pg (28.0-33.3); Mean Corpuscular Volume 90.8 fL (83.0-100.0); Mean Platelet Volume 9.6 fL (9.4-12.4); Platelet Count 216 K/mcL (140-400); Red Blood Count 4.68 M/mcL (3.82-4.97); Red Cell Distribution Width 13.4 % (11.5-14.5); White Blood Count 10.1 K/mcL (4.3-11.1)
[2019-01-01 15:43] LABS: Prothrombin Time 10.9 Seconds (9.4-12.1)
[2019-01-01] MEDS ORDERED: Ipratropium/Albuterol Neb 3 ML IH ONE (15:47)
[2019-01-01] MEDS ORDERED: Aspirin 81 MG TAB.CHEW PO ONE (15:47)
[2019-01-01] MEDS ORDERED: *HR* OxyCODONE/APAP 5/325 TABLET PO ONE (15:47)
[2019-01-01 15:55] LABS: BUN/Creatinine Ratio 20 (6-26); Blood Urea Nitrogen 14 mg/dL (6-20); Calcium 9.4 mg/dL (8.6-10.3); Carbon Dioxide 27 mEq/L (23-29); Chloride 101 mEq/L (98-107); Glucose 146 mg/dL (70-105); Osmolality,Calculated 283 (280-300); Potassium 3.6 mEq/L (3.5-5.1); Sodium 135 mEq/L (136-145); Troponin I < 0.03 ng/mL (< 0.04); eGFR For African Americans > 60 (> 60); eGFR For Non-African Americans > 60 (> 60)
[2019-01-01] MEDS ORDERED: Acetaminophen 325 MG TABLET PO PRN (16:31)
[2019-01-01] MEDS ORDERED: Naloxone 0.4 MG/ML INJ IVP PRN (16:31)
[2019-01-01] MEDS ORDERED: *HR* HYDROcodone/Acet 5/325 mg TABLET PO PRN (16:31)
--- NOTE | 2019-01-01 20:29 | Internal Med History&Physical ---
Date of Encounter: 01/01/19 Time of Encounter: 19:15 Internal Medicine - H&P: HPI Chief complaint: L side heaviness Admitted From: Emergency Dept Plans for Post Hospital Care: Home History of present illness: Ms. Vernon is a 53 year old female with prior hx of CVA presented to ED with side "heaviness." Ms Vernon presented to ED with complaints of L side "heaviness." It started at 1PM today. She was stroke alert in ED and CTAs negative. She cannot have MRIs due to spinal stimulator. She denies weakness or parasthesias. Takes ASA. No visual changes. Has also had urinary frequency. No incontinence. Says she has Crohns disease so has freq BMs daily. Recently had new med started of Catapress TTS 2 patch which has controlled her BP very well. She has not been ill recently. No fever or chills. No cough. She does have pain in her neck and thoracic area. No injury. Has spinal stimulator in her back. At this time her symptoms remain essentially unchanged. Past Med Surg Social Fam HX - Past Medical History Medical history: COPD, diabetes, hypertension, other Additional medical history: chron's dx, sleep apnea Psychiatric history: depression - Past Surgical History Surgical History: , cholecystectomy, hysterectomy, orthopedic, other, other Additional surgical history: Tonsill and Adenoid - Social History Smoking Status: Current every day smoker Packs per day: 0.5-1 Smokeless Tobacco Status: No Alcohol use: none Drug use: none - Family History Mother Hx Family Cardiac Disorders: Yes (CABG HTN) Hx Family Endocrine Disorder: Yes (DM) Father Living Status: Hx Family Cancer: Yes (mestatic) Internal Medicine - H&P: Meds Albuterol Neb [Proventil Neb] 2.5 mg IH Q4HR PRN 10/15/16 [History] Albuterol Sulfate [Proventil Inhaler] 2 puff IH Q4HR PRN 10/15/16 [History] Lisinopril-HCTZ 20-12.5 [Prinzide 20-12.5] 2 tab PO DAILY 03/08/17 [History] Metoprolol Succinate 100 mg PO DAILY 03/08/17 [History] Latanoprost [Xalatan] 1 drop BOTH EYES DAILY 11/13/17 [History] Amlodipine Besylate 10 mg PO DAILY 10/01/19 [History] Aspirin [Lo-Dose Aspirin EC] 81 mg PO DAILY 01/01/19 [History] CloNIDine Patch [Catapres-TTS] 0.2 mg TD QWEEK 01/01/19 [History] Dulaglutide [Trulicity] 0.75 mg SQ FR 01/01/19 [History] Gabapentin [Neurontin] 300 mg PO BID 01/01/19 [History] OxyCODONE/APAP 5/325 [Percocet 5/325 MG] 1 tab PO BID PRN 01/01/19 [History] Allergy/AdvReac Type Severity Reaction Status Date / Time Penicillins Allergy Hives Verified 01/01/19 17:15 NICOTINE STEP Allergy Rash Uncoded 01/01/19 17:15 All Systems PM: A 10-system review of systems was performed and is negative for pertinent findings except as documented above in the HPI. - Constitutional Constitutional: fatigue, no malaise, no night sweats - EENT Eyes: no change in vision, no pain Ears: no decreased hearing Nose, mouth and throat: no dry mouth, no mouth pain, no sinus pain - Cardiovascular Cardiovascular ROS IM: chest pain, no lightheadedness, no orthopnea, no paroxysmal nocturnal dyspnea - Respiratory Respiratory: no cough, no dyspnea, no dyspnea on exertion, no wheezing - Gastrointestinal Gastrointestinal: abdominal pain, diarrhea, no tenesmus - Genitourinary Genitourinary: urinary frequency, no dysuria, no urinary incontinence, no urinary urgency - Musculoskeletal Musculoskeletal ROS IM: back pain, limited range of motion, neck pain, no myalgias, no numbness, no tingling - Integumentary Integumentary IM: no new lesions, no rash - Neurological Neurological ROS: no confusion, no numbness, no weakness Additional comments: L side heavy - Endocrine Endocrine IM: no excessive sweating - Hematologic/Lymphatic Hematologic/Lymphatic: no easy bleeding - Allergic/Immunologic Allergic/Immunologic: no seasonal rhinorrhea - Constitutional Vitals: Temp Pulse Resp BP Pulse Ox 98.5 F 74 16 135/84 94 01/01/19 18:54 01/01/19 18:54 01/01/19 18:54 01/01/19 18:54 01/01/19 18:54 General appearance: Present: A&O X 3, answers questions appropriately Exam: See below - Head Head exam: Present: atraumatic, normocephalic - Eye Eye exam: Present: EOMI, conjuntiva pink - ENT ENT exam: Present: mucous membranes moist, normal exam - Neck Neck exam general surgery: Present: supple - Respiratory Respiratory exam: Present: CTAB. Absent: rales, rhonchi, wheezes - Cardiovascular Cardiovascular exam: Present: distant heart sounds, RRR. Absent: tachycardia - GI/Abdominal GI/Abdominal exam: Present: soft, tenderness (LLQ), no peritoneal signs - Extremities Exam Extremities exam: Present: warm. Absent: tenderness - Back Exam Back exam: Present: paraspinal tenderness (thoracic and cervical) - Neurological Exam Neurological exam: Present: alert, oriented X3, no focal deficits (L side feels "different") - Skin Skin exam: Present: dry, warm Internal Med - H&P Results - Labs CBC & Chem 7: 01/01/19 15:20 01/01/19 15:20 Labs: Short CBC 01/01/19 Range/Units 15:20 WBC 10.1 (4.3-11.1) K/mcL Hgb 13.8 (11.5-15.4) g/dL Hct 42.5 (35.3-44.9) % Plt Count 216 (140-400) K/mcL BMP 01/01/19 15:20 Sodium 135 L Potassium 3.6 Chloride 101 Carbon Dioxide 27 BUN 14 Creatinine 0.71 Glucose 146 H Calcium 9.4 Cardiac Enzymes 01/01/19 Range/Units 15:20 Troponin I < 0.03 (< 0.04) ng/mL - Impressions ITS Impressions Head CT 01/01/19 15:19 IMPRESSION: No acute intracranial abnormality. D/ / 01/01/2019 15:46:40 Keanu Bangura MD / [email or web address] Interpreting Provider: Keanu Bangura MD Head CTA 01/01/19 15:23 IMPRESSION: No high-grade stenosis or focal occlusion involving the intracranial or cervical vasculature. No evidence of acute dissection. No evidence of aneurysm. Superior endplate deformities of T3 and T5 vertebral body is most likely chronic, although age indeterminate by CT imaging alone. Presumed hemangiomas within the C7 and T3 vertebral body, not further evaluated on this examination. D/ / 01/01/2019 15:54:32 Keanu Bangura MD / shira Interpreting Provider: Keanu Bangura MD Neck CTA 01/01/19 15:23 IMPRESSION: No high-grade stenosis or focal occlusion involving the intracranial or cervical vasculature. No evidence of acute dissection. No evidence of aneurysm. Superior endplate deformities of T3 and T5 vertebral body is most likely chronic, although age indeterminate by CT imaging alone. Presumed hemangiomas within the C7 and T3 vertebral body, not further evaluated on this examination. D/ / 01/01/2019 15:54:32 Keanu Bangura MD / shira Interpreting Provider: Keanu Bangura MD Chest X-Ray 01/01/19 16:19 IMPRESSION: 1. No acute cardiopulmonary disease. D/ / 01/01/2019 16:30:45 [facility] Provider: Lexx Berman MD - Assessment and Plan (1) CVA (cerebral vascular accident) Current Visit: No Status: Suspected Assessment and plan: Pt has prior episode of CVA Now presents with heaviness feeling to L side Recently put on Catapress TTS 2 patch and BP well controlled Perhaps too well controlled now and has hypoperfusion of prior area of injury - decrease Catapress dose to TTS1 - cannot stop due to potential for rebound HTN. ASA. Statin. Cannot have MRI. Will ask neuro for further input. Qualifiers: CVA mechanism: thrombosis Precerebral and cerebral artery: middle cerebral artery Laterality of affected vessel: left Qualified Code(s): I63.312 - Cerebral infarction due to thrombosis of left middle cerebral artery (2) Cervical spine pain Current Visit: Yes Status: Acute Assessment and plan: CT tonight. (3) Thoracic spine pain Current Visit: Yes Status: Acute Assessment and plan: Check CT tonight. (4) Crohn's colitis Current Visit: No Status: Chronic Assessment and plan: No issues at this time. Qualifiers: Digestive disease complication type: without complication Qualified Code(s): K50.119 - Crohn's disease of large intestine with unspecified complications (5) HTN (hypertension) Current Visit: No Status: Chronic Assessment and plan: Decrease Catapress to TTS 1 Qualifiers: Hypertension type: essential hypertension Qualified Code(s): I10 - Essential (primary) hypertension (6) Morbid obesity with BMI of 45.0-49.9, adult Current Visit: Yes Status: Chronic Assessment and plan: Chronic issue (7) Tobacco abuse Current Visit: Yes Status: Chronic Assessment and plan: Cessation counselling - Time Spent With Patient Total time spent is greater than 50% in coordination of care (as documented) at patient's floor/unit and/or counseling patient:
[2019-01-01] MEDS ORDERED: CloNIDine Patch 0.1 MG PATCH (WEEKLY) TD SCH (20:30)
--- NOTE | 2019-01-01 22:30 | Emergency Department Note ---
Disposition Clinical Impression: Left-sided weakness, Arm paresthesia, left, Facial paresthesia, Leg paresthesia Disposition: Admitted As Inpatient Time of Disposition: 15:50 General Adult HPI - General Chief complaint: ED Neuro Symptoms/Deficit Stated complaint: neuro Time Seen by Provider: 01/01/19 14:58 Source: patient Mode of arrival: ambulatory Limitations: no limitations - History of Present Illness Pain Scale: 6 - Related Data Home Medications Medication Instructions Recorded Confirmed Albuterol Neb [Proventil Neb] 2.5 mg IH Q4HR PRN 10/15/16 01/01/19 Albuterol Sulfate [Proventil 2 puff IH Q4HR PRN 10/15/16 01/01/19 Inhaler] Lisinopril-HCTZ 20-12.5 [Prinzide 2 tab PO DAILY 03/08/17 01/01/19 20-12.5] Metoprolol Succinate 100 mg PO DAILY 03/08/17 01/01/19 Latanoprost [Xalatan] 1 drop BOTH EYES DAILY 11/13/17 01/01/19 Amlodipine Besylate 10 mg PO DAILY 01/01/19 01/01/19 Aspirin [Lo-Dose Aspirin EC] 81 mg PO DAILY 01/01/19 01/01/19 CloNIDine Patch [Catapres-TTS] 0.2 mg TD QWEEK 01/01/19 01/01/19 Dulaglutide [Trulicity] 0.75 mg SQ FR 01/01/19 01/01/19 Gabapentin [Neurontin] 300 mg PO BID 01/01/19 01/01/19 OxyCODONE/APAP 5/325 [Percocet 1 tab PO BID PRN 01/01/19 01/01/19 5/325 MG] Allergies Allergy/AdvReac Type Severity Reaction Status Date / Time Penicillins Allergy Hives Verified 01/01/19 17:15 NICOTINE STEP Allergy Rash Uncoded 01/01/19 17:15 Constitutional: Reports: weakness. Denies: fever, chills Eyes: Denies: vision change Cardiovascular: Denies: chest pain, palpitations, dyspnea on exertion Respiratory: Reports: dyspnea. Denies: cough, wheezes Gastrointestinal: Reports: abdominal pain, nausea. Denies: vomiting, diarrhea Genitourinary: Denies: dysuria, hematuria Musculoskeletal: Reports: back pain, neck pain Integumentary: Denies: rash Neurological: Reports: weakness (left sided), paresthesias (left sided). 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 - Social History Smoking Status: Current every day smoker Smokeless Tobacco Status: No Alcohol use: Reports: none Drug use: Reports: none Physical Exam - General Limitations: no limitations General appearance: alert, anxious Course Vital Signs Temperature 98.4 F 01/01/19 15:00 Pulse Rate 95 01/01/19 15:00 Respiratory Rate 22 01/01/19 15:00 Blood Pressure 158/112 01/01/19 15:00 O2 Sat by Pulse Oximetry 98 01/01/19 15:00 Temperature 98.5 F 01/01/19 18:54 Pulse Rate 74 01/01/19 18:54 Respiratory Rate 16 01/01/19 18:54 Blood Pressure 135/84 01/01/19 18:54 O2 Sat by Pulse Oximetry 94 01/01/19 18:54 Oxygen Delivery Oxygen Delivery Room Air Medical Decision Making - Lab Data Result diagrams: 01/01/19 15:20 01/01/19 15:20 Lab Results 01/01/19 01/01/19 01/01/19 Range/Units 15:01 15:20 15:20 WBC 10.1 (4.3-11.1) K/mcL RBC 4.68 (3.82-4.97) M/mcL Hgb 13.8 (11.5-15.4) g/dL Hct 42.5 (35.3-44.9) % MCV 90.8 (83.0-100.0) fL MCH 29.5 (28.0-33.3) pg MCHC 32.5 (31.6-35.5) g/dL RDW 13.4 (11.5-14.5) % Plt Count 216 (140-400) K/mcL MPV 9.6 (9.4-12.4) fL PT 10.9 (9.4-12.1) Seconds INR 1.0 APTT 32.0 (26.0-36.0) Seconds Sodium (136-145) mEq/L Potassium (3.5-5.1) mEq/L Chloride (98-107) mEq/L Carbon Dioxide (23-29) mEq/L BUN (6-20) mg/dL Creatinine (0.60-1.20) mg/dL Est GFR ( Amer) (> 60) Est GFR (Non-Af Amer) (> 60) BUN/Creatinine Ratio (6-26) Glucose (70-105) mg/dL POC Glucose 148 H (70-99) mg/dL Calculated Osmolality (280-300) Calcium (8.6-10.3) mg/dL Troponin I (< 0.04) ng/mL 01/01/19 Range/Units 15:20 WBC (4.3-11.1) K/mcL RBC (3.82-4.97) M/mcL Hgb (11.5-15.4) g/dL Hct (35.3-44.9) % MCV (83.0-100.0) fL MCH (28.0-33.3) pg MCHC (31.6-35.5) g/dL RDW (11.5-14.5) % Plt Count (140-400) K/mcL MPV (9.4-12.4) fL PT (9.4-12.1) Seconds INR APTT (26.0-36.0) Seconds Sodium 135 L (136-145) mEq/L Potassium 3.6 (3.5-5.1) mEq/L Chloride 101 (98-107) mEq/L Carbon Dioxide 27 (23-29) mEq/L BUN 14 (6-20) mg/dL Creatinine 0.71 (0.60-1.20) mg/dL Est GFR ( Amer) > 60 (> 60) Est GFR (Non-Af Amer) > 60 (> 60) BUN/Creatinine Ratio 20 (6-26) Glucose 146 H (70-105) mg/dL POC Glucose (70-99) mg/dL Calculated Osmolality 283 (280-300) Calcium 9.4 (8.6-10.3) mg/dL Troponin I < 0.03 (< 0.04) ng/mL Attestation Statement - Attestation Attestation: I examined this patient and my medical decision-making was reviewed with the Resident Physician. I agree with the documented findings, disposition and treatment plan as described except to the extent set forth below. Patient presents with stroke symptoms that started 2 hours prior to arrival. Evaluated by the [facility] neurologist via the stroke robot. He did not recommend IV TPA, and I agree with this assessment. She does not meet criteria for endovascular therapy given her NIH score less than 6. She prefers to stay here rather than go to [facility]. She is being admitted for further evaluation.
[2019-01-01] MEDS: *HR* OxyCODONE/APAP 5/325 TABLET PO PRN (22:33)
[2019-01-01] MEDS: Gabapentin 300 MG CAPSULE PO SCH (22:39)
[2019-01-02 03:48] LABS: Hematocrit 43.3 % (35.3-44.9); Hemoglobin 13.9 g/dL (11.5-15.4); Mean Corpuscular HGB Conc 32.1 g/dL (31.6-35.5); Mean Corpuscular Volume 93.5 fL (83.0-100.0); Mean Platelet Volume 9.8 fL (9.4-12.4); Platelet Count 219 K/mcL (140-400); Red Blood Count 4.63 M/mcL (3.82-4.97); Red Cell Distribution Width 13.4 % (11.5-14.5); White Blood Count 8.8 K/mcL (4.3-11.1)
[2019-01-02 04:00] LABS: BUN/Creatinine Ratio 16 (6-26); Blood Urea Nitrogen 13 mg/dL (6-20); Calcium 9.6 mg/dL (8.6-10.3); Carbon Dioxide 29 mEq/L (23-29); Chloride 102 mEq/L (98-107); Chol/HDL Ratio 5.7 (0-4.9); Cholesterol 222 mg/dL (< 200); Glucose 156 mg/dL (70-105); HDL Cholesterol 39 mg/dL (40-59); Magnesium 2.1 mg/dL (1.6-2.6); Osmolality,Calculated 283 (280-300); Potassium 3.8 mEq/L (3.5-5.1); Sodium 135 mEq/L (136-145); Triglycerides 403 mg/dL (< 150); eGFR For African Americans > 60 (> 60); eGFR For Non-African Americans > 60 (> 60)
[2019-01-02 08:01] LABS: Estimated Average Glucose 157 mg/dl
[2019-01-02] MEDS: Aspirin Enteric Coated 81 MG Tablet PO SCH (09:39)
[2019-01-02] MEDS: Lisinopril-HCTZ 20-12.5mg TABLET PO SCH (09:39)
[2019-01-02] MEDS: Metoprolol XL (24 HR) Succ 50 MG TAB.ER.24H PO SCH (09:39)
[2019-01-02] MEDS: Gabapentin 300 MG CAPSULE PO SCH ×2 (09:39→21:46)
[2019-01-02] MEDS: amLODIPine 5 MG TABLET PO SCH (09:40)
[2019-01-02] MEDS: Latanoprost 2.5 ML BOTTLE BOTH EYES SCH (09:40)
[2019-01-02] MEDS: *HR* OxyCODONE/APAP 5/325 TABLET PO PRN ×2 (09:44→21:46)
--- NOTE | 2019-01-02 10:42 | Neurology - Consult Note ---
<Eros Brown J - Last Filed: 01/02/19 11:02> Date of Encounter: 01/02/19 Time of Encounter: 11:02 Assessment and Plan (1) CVA (cerebral vascular accident) Current Visit: No Status: Suspected Neurology consulted to assist in evaluation of suspected CVA Presented with left-sided heaviness and dizziness Prior history of CVA in 2017 for which she was treated at [facility] Risk factors include obesity, age, sedentary lifestyle, diabetes, HLD, HTN, daily smoker All symptoms have resolved this morning and the neurological exam is nonfocal and nonlateralizing today. NIH-0 Currently taking aspirin daily but denies taking statin medication. Will add statin med now CT of the head completed and found to be negative for acute process but did reveal a remote infarct in the right parietal lobe CTA head and neck negative for aneurysm, hemorrhage or flow-limiting stenosis Continue with echocardiogram and duplex scan as already ordered Continue neuro assessments per protocol We will repeat CT imaging in the morning to evaluate for evolving CVA as she is unable to have MRI d/t spine stimulator Neurology will continue to follow; further recommendations pending the results of the workup Qualifiers: CVA mechanism: thrombosis Precerebral and cerebral artery: middle cerebral artery Laterality of affected vessel: left Qualified Code(s): I63.312 - Cerebral infarction due to thrombosis of left middle cerebral artery History of Present Illness Chief complaint: neuro symptoms; left sided heaviness, h/o remote CVA HPI: Ms. Vernon is a 53 year old female with a PMH of CVA in 2017, COPD, daily smoker, obesity, HLD, HTN, DM, and sleep apnea who presented to [facility] yesterday with complaint of left-sided "heaviness", dizziness and overall weakness reporting "I felt like I was so weak I could just fall." She states that the symptoms occurred around 1 PM yesterday after getting out of the shower and persisted until yesterday evening. She denies any associated focal weakness, paresthesias, visual disturbances, facial asymmetry, dysphagia, dysarthria, speech/sling which dysfunction, nausea, vomiting, diarrhea, recent illnesses, ill contacts, fevers, chills, dysuria, chest pain, palpitations or shortness of breath. She does note that when she was feeling a left-sided heaviness she was also having mild chest pressure but this has since resolved. EKG completed in the ED that time showed sinus rhythm without ST segment elevation or depression concerning for ischemia. Further, troponins have been negative 3. The time of my assessment this morning she reports that she is back to her baseline state and that the left-sided heaviness has resolved. She does report some numbness in her left fingertips but states this is chronic otherwise no new neurological symptoms are reported. A CT of head was completed in the ED and did not reveal any acute intracranial abnormalities, per my review she appears to have a remote infarct in the right parietal lobe. A CT angiogram of the head and neck was negative for aneurysm and flow limiting stenosis. A chest x-ray was also completed and negative for acute cardiopulmonary disease. CT of the thoracic and cervical spine unremarkable for acute disease revealing only mild degenerative changes. Vital signs are stable. CBC reviewed and found to be within expected range. Chemistry panel indicates diabetes with an elevated hemoglobin A1c of 7.1 and hyperlipidemia triglycerides of 403, total cholesterol 222. Unfortunately LDL and VLDL unable to process as the triglycerides are too high. HDL 39. Cholesterol HDL ratio 5.7. Past Med Surg Social Fam HX - Past Medical History Medical history: COPD, diabetes, hypertension, other Additional medical history: chron's dx, sleep apnea Psychiatric history: depression - Past Surgical History Surgical History: , cholecystectomy, hysterectomy, orthopedic, other, other Additional surgical history: Tonsill and Adenoid - Social History Smoking Status: Current every day smoker Packs per day: 0.5-1 Smokeless Tobacco Status: No Alcohol use: none Drug use: none - Family History Mother Hx Family Cardiac Disorders: Yes (CABG HTN) Hx Family Endocrine Disorder: Yes (DM) Father Living Status: Hx Family Cancer: Yes (mestatic) Medications and Allergies Albuterol Neb [Proventil Neb] 2.5 mg IH Q4HR PRN 10/15/16 [History] Albuterol Sulfate [Proventil Inhaler] 2 puff IH Q4HR PRN 10/15/16 [History] Lisinopril-HCTZ 20-12.5 [Prinzide 20-12.5] 2 tab PO DAILY 03/08/17 [History] Metoprolol Succinate 100 mg PO DAILY 03/08/17 [History] Latanoprost [Xalatan] 1 drop BOTH EYES DAILY 11/13/17 [History] Amlodipine Besylate 10 mg PO DAILY 01/01/19 [History] Aspirin [Lo-Dose Aspirin EC] 81 mg PO DAILY 01/01/19 [History] CloNIDine Patch [Catapres-TTS] 0.2 mg TD QWEEK 01/01/19 [History] Dulaglutide [Trulicity] 0.75 mg SQ FR 01/01/19 [History] Gabapentin [Neurontin] 300 mg PO BID 01/01/19 [History] OxyCODONE/APAP 5/325 [Percocet 5/325 MG] 1 tab PO BID PRN 01/01/19 [History] Allergy/AdvReac Type Severity Reaction Status Date / Time Penicillins Allergy Hives Verified 01/01/19 17:15 NICOTINE STEP Allergy Rash Uncoded 01/01/19 17:15 All Systems: The remainder of the systems were reviewed and are negative Review of Systems: REVIEW OF SYSTEMS GENERAL: Positive-generalized weakness and fatigue; negative for nausea, vomiting, diarrhea, fevers, chills NEUROLOGIC: Negative for any blurry vision, blind spots, double vision, facial asymmetry, dysphagia, dysarthria, hemiparesis, hemisensory deficits, vertigo, ataxia, seizures, paralysis, tingling, numbness, unilateral weakness or numbness/tingling Lyahkslj-vwnl-akbch heaviness, dizziness HEENT: Negative for any head trauma, neck trauma. CARDIAC: Positive for chest pressure but denies dyspnea, peripheral edema or palpitations The remainder of the review of systems reviewed and found to be negative Physical Examination - Vital Signs Vital Signs: Initial Vital Signs Temp Pulse Resp BP Pulse Ox 98.4 F 95 22 158/112 98 01/01/19 15:00 01/01/19 15:00 01/01/19 15:00 01/01/19 15:00 01/01/19 15:00 - Exam Exam: Examination: General Examination: *CONSTITUTIONAL: Alert and oriented x3, no acute distress *GENERAL APPEARANCE OF PATIENT obese female who appears healthy and well groomed *EYES: pupils equal, round, reactive to light and accommodation, conj unctiva clear without masses or ulcerations, fundi normal. *CARDIOVASCULAR: no peripheral edema, distal temperature normal, dorsalis pedis pulses normal. Refer to vital signs * MUSCULOSKELETAL: *GAIT AND STATION: normal, with normal Romberg testing, no abnormalities such as broad base gait or spasticity *ASSESSMENT OF MUSCLE STRENGTH IN THE UPPER AND LOWER EXTREMITIES enio ateral deltoid, bicep, tricep, planning and analysis manager strength, hip flexors ,anterior tibialis, dorsoflexion of the foot 5/5 *MUSCLE TONE IN THE UPPER AND LOWER EXTREMITIES normal. No abnormal movements, fasciculations or atrophy identified. Neurological: *ORIENTATION to person, situation, time and place *LANGUAGE AND FUNCTION no significant aphasia or dysarthia was noted. *ATTENTION AND CONCENTRATION are normal *LANGUAGE FUNCTION no significant aphasia or dysarthia was noted. *FUND OF KNOWLEDGE aware of current events, past history, vocabulary *MENTAL attention span and concentration normal. *CN II optic fundi were normal, no papilledema noted. *CN III,IV, PERRLA extraocular eye movements were full, no nystagmus and no ptosis noted. *CN V shows normal sensation and jaw opens symmetrically. *CN VII shows normal facial movement symmetrically, upper and lower bilaterally. *CN VIII shows no significant hearing loss on exam *CN IX-X palate elevated symmetrically *CN XI normal strength in the sternocleidomastoid muscles, symmetrical shoulder shrugging. *CN XII tongue protruded in the midline, with normal strength and movement. *SENSORY EXAMINATION light touch intact *REFLEXES: deep tendon reflexes were normal and symmetrical , grade 3/4 diffusely, patient has positive Casey's sign in bilateral hands. no pathological reflexes were noted. *CEREBELLAR TESTING normal finger to nose, heel/knee/hernandez *PAIN LEVEL 3/10 - chronic neck and back pain Results - Laboratory Findings CBC and BMP: 01/02/19 03:28 01/02/19 03:28 Abnormal lab findings: Abnormal lab results Sodium 135 mEq/L (136-145) L 01/02/19 03:28 Glucose 156 mg/dL (70-105) H 01/02/19 03:28 POC Glucose 148 mg/dL (70-99) H 01/01/19 15:01 Hemoglobin A1c 7.1 % (-5.6) H 01/02/19 03:28 Triglycerides 403 mg/dL (< 150) H 01/02/19 03:28 Cholesterol 222 mg/dL (< 200) H 01/02/19 03:28 HDL Cholesterol 39 mg/dL (40-59) L 01/02/19 03:28 Cholesterol/HDL Ratio 5.7 (0-4.9) H 01/02/19 03:28 - Diagnostic Findings Additional findings: No high-grade stenosis or focal occlusion involving the intracranial or cervical vasculature. No evidence of acute dissection. No evidence of aneurysm. Superior endplate deformities of T3 and T5 vertebral body is most likely chronic, although age indeterminate by CT imaging alone. Presumed hemangiomas within the C7 and T3 vertebral body, not further evaluated on this examination. CT/CT cervical spine wo con IMPRESSION: No acute abnormality of the cervical or thoracic spine. Mild degenerative changes as described. CT/CT thoracic spine wo con IMPRESSION: No acute abnormality of the cervical or thoracic spine. Mild degenerative changes as described. Consult Discharge Plan - Plan Referrals: Shannon Bourgeois DO [Primary Care Provider] - 01/11/19 1:30 pm <Trey Villarreal - Last Filed: 01/02/19 14:15> Date of Encounter: 01/02/19 Assessment and Plan (1) CVA (cerebral vascular accident) Current Visit: No Status: Suspected I have personally performed a [id number] assessment of the patient and have reviewed the PA/SCENARIO WRITER note. My impressions are as follows: I agree with the assessment and plan as outlined above by the TURBINE ROOM ATTENDANT. We will assess for evolution of changes of the previous right parietal lobe infarct located in the deep white matter. Qualifiers: CVA mechanism: thrombosis Precerebral and cerebral artery: middle cerebral artery Laterality of affected vessel: left Qualified Code(s): I63.312 - Cerebral infarction due to thrombosis of left middle cerebral artery History of Present Illness HPI: Chart was reviewed, patient was seen and examined independently. Case was discussed in CT scan of the brain reviewed with the TURBINE ROOM ATTENDANT. I agree with his assessment of the history of present illness as documented above. All Systems: The remainder of the systems were reviewed and are negative Review of Systems: The balance of the systems review is negative. Physical Examination - Vital Signs Vital Signs: Initial Vital Signs Temp Pulse Resp BP Pulse Ox 98.4 F 95 22 158/112 98 01/01/19 15:00 01/01/19 15:00 01/01/19 15:00 01/01/19 15:00 01/01/19 15:00 - Exam Exam: I have personally performed a [id number] assessment of the patient and have reviewed the PA/SCENARIO WRITER note. My impressions are as follows: I agree with the molly rologic examination is documented above. Results - Laboratory Findings CBC and BMP: 01/02/19 03:28 01/02/19 03:28 Abnormal lab findings: Abnormal lab results Sodium 135 mEq/L (136-145) L 01/02/19 03:28 Glucose 156 mg/dL (70-105) H 01/02/19 03:28 POC Glucose 148 mg/dL (70-99) H 01/01/19 15:01 Hemoglobin A1c 7.1 % (-5.6) H 01/02/19 03:28 Triglycerides 403 mg/dL (< 150) H 01/02/19 03:28 Cholesterol 222 mg/dL (< 200) H 01/02/19 03:28 HDL Cholesterol 39 mg/dL (40-59) L 01/02/19 03:28 Cholesterol/HDL Ratio 5.7 (0-4.9) H 01/02/19 03:28
--- NOTE | 2019-01-02 11:50 | Internal Med Progress Note ---
Hospitalist Progress Note - Encounter Date of Encounter: 01/02/19 Time of Encounter: 11:48 - Subjective Interval History: No acute events overnight. Patient seen and examined. States that she feels "good enough to go home". She denies limb weakness, headaches, blurred vision and slurred speech. - Exam Vitals: Temp Pulse Resp BP Pulse Ox 36.5 C 74 15 117/74 93 01/02/19 07:01 01/02/19 07:01 01/02/19 07:01 01/02/19 07:01 01/02/19 07:01 Exam: GENERAL: Not in distress. Alert and Oriented HEENT: EOMI, PERRLA MOUTH: Moist oral mucosa NECK:No JVD, No lymph nodes. CHEST AND LUNGS: Bilateral diffuse wheezing. HEART: S1 and S2 normal, no murmurs ABDOMEN: Soft, nontender, no organomegaly SKIN: Normal color, no rashes, no lesions EXTREMITIES: No deformity, no edema, no tenderness, no joint swelling or clubbing NEUROLOGICAL: Normal cognition, normal motor and sensory exam. - Assessment and Plan (1) CVA (cerebral vascular accident) Current Visit: No Status: Suspected Assessment and Plan: No focal neurological deficit this morning. Has been seen and examined by neurology. Plan is to repeat CT scan tomorrow morning since patient cannot get an MRI. Statins added to meds. (2) Cervical spine pain Current Visit: Yes Status: Acute Assessment and Plan: CT shows mild degenerative changes. No acute abnormality. Will reassure patient. (3) Thoracic spine pain Current Visit: Yes Status: Acute Assessment and Plan: CT shows mild degenerative changes. No acute abnormalityin thoracic spine. Will reassure patient. Adequate analgesia. (4) Crohn's colitis Current Visit: No Status: Chronic Assessment and Plan: No issues at this time. (5) HTN (hypertension) Current Visit: No Status: Chronic Assessment and Plan: Decrease Catapress to TTS 1 (6) Morbid obesity with BMI of 45.0-49.9, adult Current Visit: Yes Status: Chronic Assessment and Plan: Patient counselled on weight loss options available. (7) Tobacco abuse Current Visit: Yes Status: Chronic Assessment and Plan: Cessation counselling - Time Spent with Patient Total time spent is greater than 50% in coordination of care (as documented) at patient's floor/unit and/or counseling patient: Internal Medicine: Result - Labs CBC & Chem 7: 01/02/19 03:28 01/02/19 03:28 Labs: Short CBC 01/01/19 01/02/19 Range/Units 15:20 03:28 WBC 10.1 8.8 (4.3-11.1) K/mcL Hgb 13.8 13.9 (11.5-15.4) g/dL Hct 42.5 43.3 (35.3-44.9) % Plt Count 216 219 (140-400) K/mcL BMP 01/01/19 01/02/19 15:20 03:28 Sodium 135 L 135 L Potassium 3.6 3.8 Chloride 101 102 Carbon Dioxide 27 29 BUN 14 13 Creatinine 0.71 0.81 Glucose 146 H 156 H Calcium 9.4 9.6 Cardiac Enzymes 01/01/19 01/01/19 01/02/19 Range/Units 15:20 23:44 03:28 Troponin I < 0.03 < 0.03 < 0.03 (< 0.04) ng/mL - ABG Interpretation ABG results: PT/INR, D-dimer PT 10.9 Seconds (9.4-12.1) 01/01/19 15:20 - Impressions Impressions Head CT 01/01/19 15:19 IMPRESSION: No acute intracranial abnormality. D/ / 01/01/2019 15:46:40 Keanu Bangura MD / [email or web address] Interpreting Provider: Keanu Bangura MD Head CTA 01/01/19 15:23 IMPRESSION: No high-grade stenosis or focal occlusion involving the intracranial or cervical vasculature. No evidence of acute dissection. No evidence of aneurysm. Superior endplate deformities of T3 and T5 vertebral body is most likely chronic, although age indeterminate by CT imaging alone. Presumed hemangiomas within the C7 and T3 vertebral body, not further evaluated on this examination. D/ / 01/01/2019 15:54:32 Keanu Bangura MD / shira Interpreting Provider: Keanu Bangura MD Neck CTA 01/01/19 15:23 IMPRESSION: No high-grade stenosis or focal occlusion involving the intracranial or cervical vasculature. No evidence of acute dissection. No evidence of aneurysm. Superior endplate deformities of T3 and T5 vertebral body is most likely chronic, although age indeterminate by CT imaging alone. Presumed hemangiomas within the C7 and T3 vertebral body, not further evaluated on this examination. D/ / 01/01/2019 15:54:32 Keanu Bangura MD / shira Interpreting Provider: Keanu Bangura MD Chest X-Ray 01/01/19 16:19 IMPRESSION: 1. No acute cardiopulmonary disease. D/ / 01/01/2019 16:30:45 Lexx Berman MD / eliz Interpreting Provider: Lexx Berman MD Cervical Spine CT 01/01/19 22:30 IMPRESSION: No acute abnormality of the cervical or thoracic spine. Mild degenerative changes as described. D/ / Trey Washburn MD / Trey Washburn MD Interpreting Provider: Trey Washburn MD Thoracic Spine CT 01/01/19 22:30 IMPRESSION: No acute abnormality of the cervical or thoracic spine. Mild degenerative changes as described. D/ / Trey Washburn MD / Trey Washburn MD Interpreting Provider: Trey Washburn MD Consult Discharge Plan - Plan Referrals: Shannon Bourgeois DO [Primary Care Provider] - 01/11/19 1:30 pm (1) CVA (cerebral vascular accident) Qualifiers: CVA mechanism: thrombosis Precerebral and cerebral artery: middle cerebral artery Laterality of affected vessel: left Qualified Code(s): I63.312 - Cerebral infarction due to thrombosis of left middle cerebral artery (4) Crohn's colitis Qualifiers: Digestive disease complication type: without complication Qualified Code(s): K50.119 - Crohn's disease of large intestine with unspecified complications (5) HTN (hypertension) Qualifiers: Hypertension type: essential hypertension Qualified Code(s): I10 - Essential (primary) hypertension
--- NOTE | 2019-01-02 14:44 | Electrocardiograph Report ---
[address] [place], [place] [address] Test Date: 2019-01-01 Pat Name: Bushra Vernon Department: [id number] Room: 3B52 Gender: Varnish Blender: : 1965 Requested By: Abigail Cohen Order Number: [id number] Reading MD: Daniel Almeida Measurements Intervals [place] Rate: 99 P: 53 WY: 200 QRS: -9 QRSD: 95 T: 62 QT: 356 QTc: 457 Interpretive Statements Sinus rhythm Borderline prolonged [place] interval Low voltage, extremity and precordial leads Anteroseptal infarct, old Electronically Signed On 01-02-2019 14:43:02 EDT by Daniel Almeida
--- NOTE | 2019-01-02 15:00 | Electrocardiograph Report ---
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
[2019-01-02] MEDS: Albuterol 2.5 MG/3 ML NEBULIZER IH PRN (17:21)
[2019-01-03 07:59] VITALS: BP 138/87
[2019-01-03] MEDS: Albuterol 2.5 MG/3 ML NEBULIZER IH PRN (07:59)
[2019-01-03] MEDS: Metoprolol XL (24 HR) Succ 50 MG TAB.ER.24H PO SCH (08:28)
[2019-01-03] MEDS: Gabapentin 300 MG CAPSULE PO SCH (08:28)
[2019-01-03] MEDS: Aspirin Enteric Coated 81 MG Tablet PO SCH (08:29)
[2019-01-03] MEDS: amLODIPine 5 MG TABLET PO SCH (08:29)
[2019-01-03] MEDS: Lisinopril-HCTZ 20-12.5mg TABLET PO SCH (08:29)
[2019-01-03] MEDS: Latanoprost 2.5 ML BOTTLE BOTH EYES SCH (08:30)
--- NOTE | 2019-01-03 10:09 | Discharge Summary ---
Date of Encounter: 01/03/19 Time of Encounter: 10:08 - Discharge Diagnosis (1) CVA (cerebral vascular accident) Priority: Primary Status: Suspected Qualifiers: CVA mechanism: thrombosis Precerebral and cerebral artery: middle cerebral artery Laterality of affected vessel: left Qualified Code(s): I63.312 - Cerebral infarction due to thrombosis of left middle cerebral artery (2) Cervical spine pain Priority: Secondary Status: Acute (3) Thoracic spine pain Priority: Secondary Status: Acute (4) Crohn's colitis Priority: Secondary Status: Chronic Qualifiers: Digestive disease complication type: without complication Qualified Code(s): K50.10 - Crohn's disease of large intestine without complications (5) HTN (hypertension) Priority: Secondary Status: Chronic Qualifiers: Hypertension type: essential hypertension Qualified Code(s): I10 - Essential (primary) hypertension (6) Morbid obesity with BMI of 45.0-49.9, adult Priority: Secondary Status: Chronic (7) Tobacco abuse Priority: Secondary Status: Chronic Hospital course: Ms. Vernon is a 53 year old female with a PMHx of DM, Crohn's and prior CVA who presented with Lt-sided heaviness. Her symtpoms improved during her hospital stay and she currently has 5/5 power in her extremities. Two head CT scans were done 24 ours apart to check for a possible evolving stroke but both were negative. MRI not done due to spinal stimulator. Atorvastatin added to her hoe aspirin. Will be discharged to f/u with her PCP. Discharge discussed with: patient, is consultant - Time Spent with Patient Total time spent providing and/or coordinating discharge services: Time spent: Greater than 30 minutes (40 minutes) - Discharge Medications Prescriptions: New Atorvastatin [Lipitor] 40 mg PO HS #30 tablet Continued Lisinopril-HCTZ 20-12.5 [Prinzide 20-12.5] 2 tab PO DAILY Metoprolol Succinate 100 mg PO DAILY Latanoprost [Xalatan] 1 drop BOTH EYES DAILY Amlodipine Besylate 10 mg PO DAILY Aspirin [Lo-Dose Aspirin EC] 81 mg PO DAILY CloNIDine Patch [Catapres-Tts] 0.2 mg TD QWEEK Dulaglutide [Trulicity] 0.75 mg SQ FR Gabapentin [Neurontin] 300 mg PO BID OxyCODONE/APAP 5/325 [Percocet 5/325 MG] 1 tab PO BID PRN PRN Reason: Mild To Moderate Pain Albuterol Sulfate [Proventil Inhaler] 2 puff IH Q4HR PRN PRN Reason: Shortness Of Breath Albuterol Neb [Proventil Neb] 2.5 mg IH Q4HR PRN PRN Reason: Shortness Of Breath Home Medications: Albuterol Neb [Proventil Neb] 2.5 mg IH Q4HR PRN 10/15/16 [History] Albuterol Sulfate [Proventil Inhaler] 2 puff IH Q4HR PRN 10/15/16 [History] Lisinopril-HCTZ 20-12.5 [Prinzide 20-12.5] 2 tab PO DAILY 03/08/17 [History] Metoprolol Succinate 100 mg PO DAILY 03/08/17 [History] Latanoprost [Xalatan] 1 drop BOTH EYES DAILY 11/13/17 [History] Amlodipine Besylate 10 mg PO DAILY 01/01/19 [History] Aspirin [Lo-Dose Aspirin EC] 81 mg PO DAILY 01/01/19 [History] CloNIDine Patch [Catapres-Tts] 0.2 mg TD QWEEK 01/01/19 [History] Dulaglutide [Trulicity] 0.75 mg SQ FR 01/01/19 [History] Gabapentin [Neurontin] 300 mg PO BID 01/01/19 [History] OxyCODONE/APAP 5/325 [Percocet 5/325 MG] 1 tab PO BID PRN 01/01/19 [History] Atorvastatin [Lipitor] 40 mg PO HS #30 tablet 01/03/19 [Rx] Allergies/Adverse Reactions: Allergy/AdvReac Type Severity Reaction Status Date / Time Penicillins Allergy Hives Verified 01/01/19 17:15 NICOTINE STEP Allergy Rash Uncoded 01/01/19 17:15 Date of admission: 01/01/19 17:41 Primary care physician: Katya Sanchez Consults: 01/01/19 16:33 Consult to Physical Therapy [CONS] Routine Comment: Evaluate, develop and implement POC Reason for Consult: Possible stroke Does patient have active BEDREST order?: No Is patient medically & hemodynamically stable?: Yes Patient assessed for mobility or mobilized this visit?: Yes 01/01/19 20:42 Consult to Neurology [CONS] Routine Consulting Provider: [facility] Reason for Consult: Possible CVA - prior event. Has spinal stimulator. Recently started on Catapress TTS 2 patch - ? hypoperfusion Call Completed: Yes - Constitutional Vitals: Temp Pulse Resp BP Pulse Ox 36.8 C 85 15 138/87 95 01/03/19 07:58 01/03/19 07:58 01/03/19 08:03 01/03/19 07:58 01/03/19 08:03 General appearance: Present: A&O X 3, answers questions appropriately Exam: GENERAL: Not in distress. Alert and Oriented HEENT: EOMI, PERRLA MOUTH: Moist oral mucosa NECK:No JVD, No lymph nodes. CHEST AND LUNGS: Bilateral diffuse wheezing. HEART: S1 and S2 normal, no murmurs ABDOMEN: Soft, nontender, no organomegaly SKIN: Normal color, no rashes, no lesions EXTREMITIES: No deformity, no edema, no tenderness, no joint swelling or clubbing NEUROLOGICAL: 5/5 power in all extremities. Normal cognition, normal motor and sensory exam. - Patient Status Disposition: Home, Self-Care Condition: Good Functional capacity at discharge: independent ambulation Overall status at discharge: patient is back to baseline - Discharge Instructions Follow Up With: Shannon Bourgeois DO [Primary Care Provider] - 01/11/19 1:30 pm - Diet and Activity Activity: resume usual activities as tolerated Diet: advance to your usual diet, low fat, low cholesterol
--- NOTE | 2019-01-03 11:43 | Neurology Progress Note ---
<Eros Brown - Last Filed: 01/03/19 11:40> Date of Encounter: 01/03/19 Time of Encounter: 11:40 Assessment and Plan (1) CVA (cerebral vascular accident) Status: Suspected Clinically the patient remains stable without any development of any further neurological deficits. All symptoms have resolved at this juncture. Repeat CT imaging of the head negative for evolution of previous CVA or any acute abnormalities. Consider TIA as the etiology of her symptoms. Again CTA head and neck also negative. At this juncture we are recommending continuing her daily aspirin regimen and adding statin therapy. Neurology will sign off at this time. Qualifiers: CVA mechanism: thrombosis Precerebral and cerebral artery: middle cerebral artery Laterality of affected vessel: left Qualified Code(s): I63.312 - Cerebral infarction due to thrombosis of left middle cerebral artery Subjective Principal diagnosis: Left-sided neuro symptoms consider TIA Interval history: Chart review, the patient was seen and examined at bedside today. She reports that her symptoms have completely abated and she is no longer having left-sided heaviness. She denies any further neurological symptoms since admission. Objective - Constitutional Vitals: Temp Pulse Resp BP Pulse Ox 98.2 F 85 15 138/87 95 01/03/19 07:58 01/03/19 07:58 01/03/19 08:03 01/03/19 07:58 01/03/19 08:03 Exam: Examination: General Examination: *CONSTITUTIONAL: Alert and oriented x3, no acute distress *GENERAL APPEARANCE OF PATIENT obese female who appears healthy and well groomed *EYES: pupils equal, round, reactive to light and accommodation, conjunctiva clear without masses or ulcerations, fundi normal. *CARDIOVASCULAR: no peripheral edema, distal temperature normal, dorsalis pedis pulses normal. Refer to vital signs * MUSCULOSKELETAL: *GAIT AND STATION: normal, with normal Romberg testing, no abnormalities such as broad base gait or spasticity *ASSESSMENT OF MUSCLE STRENGTH IN THE UPPER AND LOWER EXTREMITIES bilateral deltoid, bicep, tricep, law researcher strength, hip flexors ,anterior tibialis, dorsoflexion of the foot 5/5 *MUSCLE TONE IN THE UPPER AND LOWER EXTREMITIES normal. No abnormal movements, fasciculations or atrophy identified. Neurological: *ORIENTATION to person, situation, time and place *LANGUAGE AND FUNCTION no significant aphasia or dysarthia was noted. *ATTENTION AND CONCENTRATION are normal *LANGUAGE FUNCTION no significant aphasia or dysarthia was noted. *FUND OF KNOWLEDGE aware of current events, past history, vocabulary *MENTAL attention span and concentration normal. *CN II optic fundi were normal, no papilledema noted. *CN III,IV, PERRLA extraocular eye movements were full, no nystagmus and no ptosis noted. *CN V shows normal sensation and jaw opens symmetrically. *CN VII shows normal facial movement symmetrically, upper and lower bi laterally. *CN VIII shows no significant hearing loss on exam *CN IX-X palate elevated symmetrically *CN XI normal strength in the sternocleidomastoid muscles, symmetrical shoulder shrugging. *CN XII tongue protruded in the midline, with normal strength and movement. *SENSORY EXAMINATION light touch intact *REFLEXES: deep tendon reflexes were normal and symmetrical , grade 3/4 diffusely, patient has positive Casey's sign in bilateral hands. no pathological reflexes were noted. *CEREBELLAR TESTING normal finger to nose, heel/knee/hernandez *PAIN LEVEL 0/10 Results - Laboratory Findings CBC and BMP: 01/02/19 03:28 01/02/19 03:28 Abnormal lab findings: Abnormal lab results Sodium 135 mEq/L (136-145) L 01/02/19 03:28 Glucose 156 mg/dL (70-105) H 01/02/19 03:28 POC Glucose 148 mg/dL (70-99) H 01/01/19 15:01 Hemoglobin A1c 7.1 % (-5.6) H 01/02/19 03:28 Triglycerides 403 mg/dL (< 150) H 01/02/19 03:28 Cholesterol 222 mg/dL (< 200) H 01/02/19 03:28 HDL Cholesterol 39 mg/dL (40-59) L 01/02/19 03:28 Cholesterol/HDL Ratio 5.7 (0-4.9) H 01/02/19 03:28 Consult Discharge Plan - Plan Instructions: Atorvastatin (By mouth), Ischemic Stroke (DC) Referrals: Shannon Bourgeois DO [Primary Care Provider] - 01/11/19 1:30 pm Prescriptions: Atorvastatin [Lipitor] 40 mg PO HS #30 tablet Transmission Status: Received by [facility] #[id number] <Trey Villarreal - Last Filed: 01/03/19 17:00> Date of Encounter: 01/03/19 Assessment and Plan (1) CVA (cerebral vascular accident) Status: Suspected I have personally performed a [id number] assessment of the patient and have reviewed the PA/ORE ROASTER note. My impressions are as follows:I agree with the ass essment and plan as stated above. Stroke workup was negative for any evidence of new cerebral infarct. I agree with the assessment and plan as stated above. We will reevaluate at your request. Qualifiers: CVA mechanism: thrombosis Precerebral and cerebral artery: middle cerebral artery Laterality of affected vessel: left Qualified Code(s): I63.312 - Cerebral infarction due to thrombosis of left middle cerebral artery Subjective Interval history: Chart was reviewed, patient was seen and examined with LOCOMOTIVE CRANE ENGINEER. I agree with his documentation of the history of present illness as above. Repeat CT scan of the brain reveals no evidence of nerve infarct. Right previous lacunar infarct remains unchanged. Objective - Constitutional Vitals: Temp Pulse Resp BP Pulse Ox 98.2 F 85 15 138/87 95 01/03/19 07:58 01/03/19 07:58 01/03/19 08:03 01/03/19 07:58 01/03/19 08:03 Exam: I have personally performed a [id number] assessment of the patient and have reviewed the PA/ORE ROASTER note. My impressions are as follows: I agree with the documentation of her neurologic exam is outlined above. Results - Laboratory Findings CBC and BMP: 01/02/19 03:28 01/02/19 03:28 Abnormal lab findings: Abnormal lab results Sodium 135 mEq/L (136-145) L 01/02/19 03:28 Glucose 156 mg/dL (70-105) H 01/02/19 03:28 POC Glucose 148 mg/dL (70-99) H 01/01/19 15:01 Hemoglobin A1c 7.1 % (-5.6) H 01/02/19 03:28 Triglycerides 403 mg/dL (< 150) H 01/02/19 03:28 Cholesterol 222 mg/dL (< 200) H 01/02/19 03:28 HDL Cholesterol 39 mg/dL (40-59) L 01/02/19 03:28 Cholesterol/HDL Ratio 5.7 (0-4.9) H 01/02/19 03:28
== END 2019-01-03 10:50 | disposition home or self-care (01) ==
LOC: 3BNU 14:56 → EMEROOARM 14:56 → SUATTDRO 17:41 → 3BNU 18:33
PROVIDERS: ADMIT Pharmacist; ATTEND Internal Medicine

== ENCOUNTER 2021-09-02 23:02 | Inpatient (IN) ==
[2021-09-02] MEDS ORDERED: Isovue-370 500 ML BOTTLE IVP ONE (23:11)
[2021-09-02] MEDS ORDERED: 0.9 % Sodium Chloride 500 ML ONE (23:13)
[2021-09-02 23:23] LABS: Basophils # 0.1 K/mcL (0.0-0.2); Basophils % 0.5 %; Eosinophils # 0.1 K/mcL (0.0-0.6); Hematocrit 36.6 % (35.3-44.9); Hemoglobin 12.1 g/dL (11.5-15.4); Immature Granulocytes % 0.5 % (0-4); Lymphocytes % 28.3 %; Mean Corpuscular HGB Conc 33.1 g/dL (31.6-35.5); Mean Corpuscular Hemoglobin 29.5 pg (28.0-33.3); Mean Corpuscular Volume 89.3 fL (83.0-100.0); Mean Platelet Volume 10.1 fL (9.4-12.4); Monocytes # 0.7 K/mcL (0.0-1.3); Monocytes % 4.9 %; Neutrophils # 9.1 K/mcL (1.6-8.9); Platelet Count 363 K/mcL (140-400); Red Cell Distribution Width 13.7 % (11.5-14.5); Segmented Neutrophils % 64.8 %; White Blood Count 14.1 K/mcL (4.3-11.1)
[2021-09-02 23:44] LABS: Alanine Aminotransferase 13 Units/L (7-52); Albumin 3.7 g/dL (3.5-5.7); Albumin/Globulin Ratio 1.3 (1.1-2.2); Alkaline Phosphatase 69 Units/L (34-104); Aspartate Amino Transferase 21 Units/L (13-39); BUN/Creatinine Ratio 23 (6-26); Bilirubin,Total 0.5 mg/dL (0.3-1.0); Blood Urea Nitrogen 26 mg/dL (6-20); Calcium 9.2 mg/dL (8.6-10.3); Carbon Dioxide 23 mEq/L (23-29); Chloride 101 mEq/L (98-107); Globulin 2.9 g/dL (2.4-3.5); Glucose 310 mg/dL (70-105); Lipase 149 Units/L (11-82); Magnesium 2.1 mg/dL (1.6-2.6); Osmolality,Calculated 299 (280-300); Potassium 4.1 mEq/L (3.5-5.1); Sodium 136 mEq/L (136-145); Total Protein 6.6 g/dL (6.4-8.9); Troponin I < 0.03 ng/mL (< 0.04); eGFR For African Americans > 60 (> 60); eGFR For Non-African Americans 50 (> 60)
[2021-09-02 23:45] LABS: INR 1.3; Prothrombin Time 14.2 Seconds (9.4-12.1)
[2021-09-02 23:48] LABS: Activated Partial Thrombo Time 33.6 Seconds (26.0-36.0)
[2021-09-02] MEDS ORDERED: Pantoprazole 40 MG VIAL IVP ONE (23:55)
[2021-09-03] MEDS ORDERED: 0.9 % Sodium Chloride 1,000 ML ONE (01:22)
[2021-09-03 01:27] LABS: Basophils % 0.4 %; Eosinophils # 0.1 K/mcL (0.0-0.6); Hematocrit 25.9 % (35.3-44.9); Immature Granulocytes % 0.6 % (0-4); Lymphocytes # 1.5 K/mcL (0.6-4.6); Lymphocytes % 18.9 %; Mean Corpuscular HGB Conc 32.4 g/dL (31.6-35.5); Mean Corpuscular Hemoglobin 29.7 pg (28.0-33.3); Mean Corpuscular Volume 91.5 fL (83.0-100.0); Mean Platelet Volume 9.9 fL (9.4-12.4); Monocytes # 0.5 K/mcL (0.0-1.3); Monocytes % 6.5 %; Neutrophils # 5.9 K/mcL (1.6-8.9); Platelet Count 169 K/mcL (140-400); Red Blood Count 2.83 M/mcL (3.82-4.97); Red Cell Distribution Width 13.5 % (11.5-14.5); Segmented Neutrophils % 72.6 %; White Blood Count 8.1 K/mcL (4.3-11.1)
[2021-09-03 01:33] LABS: Hemoglobin 8.4 g/dL (11.5-15.4)
[2021-09-03] MEDS ORDERED: Naloxone 0.4 MG/ML INJ IVP PRN (02:25)
[2021-09-03] MEDS ORDERED: Ondansetron 4 MG/2 ML VIAL IVP PRN (02:25)
[2021-09-03] MEDS ORDERED: *HR* Dextrose 50 % in Water (Syg) 50 ML SYRINGE IVP PRN (03:19)
[2021-09-03] MEDS ORDERED: Dextrose Gel 15 GM/37.5 ML TUBE PO PRN ×2 (03:19)
[2021-09-03] MEDS ORDERED: D5% in Water 1,000 ML IVC PRN (03:19)
[2021-09-03] MEDS: 0.9 % Sodium Chloride 1,000 ML IVC SCH ×4 (05:28→20:00)
[2021-09-03] MEDS: Insulin LISPRO 300 UNITS/3 ML VIAL SUBQ SCH ×3 (05:31→18:56)
[2021-09-03] MEDS: Pantoprazole 40 MG VIAL IVP SCH ×2 (05:39→17:03)
[2021-09-03 06:07] LABS: Hematocrit 32.8 % (35.3-44.9); Mean Corpuscular HGB Conc 32.6 g/dL (31.6-35.5); Mean Corpuscular Hemoglobin 29.3 pg (28.0-33.3); Mean Corpuscular Volume 89.9 fL (83.0-100.0); Platelet Count 202 K/mcL (140-400); Red Blood Count 3.65 M/mcL (3.82-4.97); Red Cell Distribution Width 13.8 % (11.5-14.5); White Blood Count 9.1 K/mcL (4.3-11.1)
[2021-09-03 06:15] LABS: Hemoglobin 10.7 g/dL (11.5-15.4)
[2021-09-03 06:17] LABS: INR 1.2; Prothrombin Time 13.2 Seconds (9.4-12.1)
[2021-09-03 06:20] LABS: Activated Partial Thrombo Time 29.3 Seconds (26.0-36.0)
[2021-09-03 06:22] LABS: BUN/Creatinine Ratio 30 (6-26); Blood Urea Nitrogen 29 mg/dL (6-20); Calcium 8.5 mg/dL (8.6-10.3); Carbon Dioxide 28 mEq/L (23-29); Chloride 104 mEq/L (98-107); Glucose 281 mg/dL (70-105); Osmolality,Calculated 300 (280-300); Sodium 137 mEq/L (136-145); eGFR For African Americans > 60 (> 60); eGFR For Non-African Americans 59 (> 60)
[2021-09-03] MEDS ORDERED: Albuterol 2.5 MG/3 ML NEBULIZER IH PRN (09:08)
[2021-09-03] MEDS ORDERED: Albuterol 2.5 MG/3 ML NEBULIZER ONE (09:10)
[2021-09-03] MEDS ORDERED: *HR* Propofol 200 MG/20 ML VIAL IVP ONE ×2 (09:18→09:34)
[2021-09-03] MEDS ORDERED: Lidocaine -MPF 2% 2 ML VIAL ONE ×2 (09:20)
[2021-09-03 14:32] LABS: Hematocrit 31.6 % (35.3-44.9); Hemoglobin 10.1 g/dL (11.5-15.4)
[2021-09-03] MEDS ORDERED: SODIUM CHLORIDE/NAHCO3/KCL/PEG 4,000 ML SOLN.RECON PO ONE (17:00)
[2021-09-04] MEDS: Insulin LISPRO 300 UNITS/3 ML VIAL SUBQ SCH ×4 (02:39→17:35)
[2021-09-04] MEDS: 0.9 % Sodium Chloride 1,000 ML IVC SCH ×2 (04:45→15:06)
[2021-09-04 05:02] LABS: Basophils % 0.4 %; Eosinophils # 0.1 K/mcL (0.0-0.6); Eosinophils % 1.7 %; Hematocrit 32.6 % (35.3-44.9); Hemoglobin 10.3 g/dL (11.5-15.4); Immature Granulocytes % 0.5 % (0-4); Lymphocytes # 1.6 K/mcL (0.6-4.6); Lymphocytes % 21.3 %; Mean Corpuscular HGB Conc 31.6 g/dL (31.6-35.5); Mean Corpuscular Hemoglobin 28.9 pg (28.0-33.3); Mean Corpuscular Volume 91.3 fL (83.0-100.0); Mean Platelet Volume 9.5 fL (9.4-12.4); Monocytes # 0.4 K/mcL (0.0-1.3); Monocytes % 4.6 %; Neutrophils # 5.4 K/mcL (1.6-8.9); Platelet Count 186 K/mcL (140-400); Red Blood Count 3.57 M/mcL (3.82-4.97); Red Cell Distribution Width 14.1 % (11.5-14.5); Segmented Neutrophils % 71.5 %; White Blood Count 7.6 K/mcL (4.3-11.1)
[2021-09-04 05:12] LABS: Alanine Aminotransferase 12 Units/L (7-52); Albumin 3.3 g/dL (3.5-5.7); Albumin/Globulin Ratio 1.4 (1.1-2.2); Alkaline Phosphatase 57 Units/L (34-104); Aspartate Amino Transferase 19 Units/L (13-39); BUN/Creatinine Ratio 26 (6-26); Bilirubin,Total 0.5 mg/dL (0.3-1.0); Blood Urea Nitrogen 17 mg/dL (6-20); Calcium 8.2 mg/dL (8.6-10.3); Carbon Dioxide 27 mEq/L (23-29); Chloride 106 mEq/L (98-107); Globulin 2.3 g/dL (2.4-3.5); Glucose 175 mg/dL (70-105); Osmolality,Calculated 288 (280-300); Sodium 136 mEq/L (136-145); Total Protein 5.6 g/dL (6.4-8.9); eGFR For African Americans > 60 (> 60); eGFR For Non-African Americans > 60 (> 60)
[2021-09-04] MEDS: Pantoprazole 40 MG VIAL IVP SCH ×2 (06:35→17:59)
[2021-09-04] MEDS ORDERED: Lidocaine -MPF 2% 2 ML VIAL ONE (07:09)
[2021-09-04] MEDS ORDERED: *HR* Succinylcholine 200 MG/10 ML VIAL IVP ONE (07:09)
[2021-09-04] MEDS ORDERED: Ipratropium/Albuterol Neb 3 ML ONE (12:51)
[2021-09-04] MEDS ORDERED: Acetaminophen 325 MG TABLET PO PRN (17:57)
[2021-09-04] MEDS: *HR* HYDROcodone/Acet 5/325 mg TABLET PO PRN (18:08)
[2021-09-05] MEDS: Insulin LISPRO 300 UNITS/3 ML VIAL SUBQ SCH ×5 (00:09→23:54)
[2021-09-05] MEDS: 0.9 % Sodium Chloride 1,000 ML IVC SCH ×2 (00:11→09:45)
[2021-09-05 02:39] LABS: Hematocrit 26.2 % (35.3-44.9); Hemoglobin 8.3 g/dL (11.5-15.4); Mean Corpuscular HGB Conc 31.7 g/dL (31.6-35.5); Mean Corpuscular Hemoglobin 29.3 pg (28.0-33.3); Mean Corpuscular Volume 92.6 fL (83.0-100.0); Mean Platelet Volume 10.1 fL (9.4-12.4); Platelet Count 214 K/mcL (140-400); Red Blood Count 2.83 M/mcL (3.82-4.97); Red Cell Distribution Width 14.1 % (11.5-14.5); White Blood Count 9.4 K/mcL (4.3-11.1)
[2021-09-05] MEDS: *HR* HYDROcodone/Acet 5/325 mg TABLET PO PRN (05:42)
[2021-09-05] MEDS: Pantoprazole 40 MG VIAL IVP SCH ×2 (05:42→18:38)
[2021-09-05] MEDS ORDERED: Furosemide 40 MG/4 ML VIAL IVP ONE (13:10)
[2021-09-05 14:04] LABS: Hematocrit 24.2 % (35.3-44.9); Hemoglobin 7.6 g/dL (11.5-15.4); Mean Corpuscular HGB Conc 31.4 g/dL (31.6-35.5); Mean Corpuscular Hemoglobin 29.1 pg (28.0-33.3); Mean Corpuscular Volume 92.7 fL (83.0-100.0); Mean Platelet Volume 9.9 fL (9.4-12.4); Platelet Count 200 K/mcL (140-400); Red Blood Count 2.61 M/mcL (3.82-4.97); Red Cell Distribution Width 14.4 % (11.5-14.5)
[2021-09-05] MEDS ORDERED: Isovue-370 500 ML BOTTLE IVP ONE (14:36)
[2021-09-05] MEDS ORDERED: Ipratropium Neb 0.5 MG NEBULIZER IH PRN (17:55)
[2021-09-05 20:20] LABS: Basophils % 0.4 %; Eosinophils # 0.2 K/mcL (0.0-0.6); Eosinophils % 1.6 %; Hematocrit 28.2 % (35.3-44.9); Immature Granulocytes % 0.5 % (0-4); Lymphocytes # 2.2 K/mcL (0.6-4.6); Lymphocytes % 22.6 %; Mean Corpuscular HGB Conc 32.6 g/dL (31.6-35.5); Mean Corpuscular Hemoglobin 29.8 pg (28.0-33.3); Mean Corpuscular Volume 91.3 fL (83.0-100.0); Mean Platelet Volume 9.9 fL (9.4-12.4); Monocytes # 0.4 K/mcL (0.0-1.3); Monocytes % 4.4 %; Neutrophils # 6.8 K/mcL (1.6-8.9); Platelet Count 233 K/mcL (140-400); Red Blood Count 3.09 M/mcL (3.82-4.97); Red Cell Distribution Width 14.3 % (11.5-14.5); Segmented Neutrophils % 70.5 %; White Blood Count 9.6 K/mcL (4.3-11.1)
[2021-09-05 20:21] LABS: Hemoglobin 9.2 g/dL (11.5-15.4)
[2021-09-06 03:51] LABS: Basophils % 0.4 %; Eosinophils # 0.2 K/mcL (0.0-0.6); Hematocrit 25.3 % (35.3-44.9); Hemoglobin 8.3 g/dL (11.5-15.4); Immature Granulocytes % 0.7 % (0-4); Lymphocytes % 27.1 %; Mean Corpuscular HGB Conc 32.8 g/dL (31.6-35.5); Mean Corpuscular Hemoglobin 29.9 pg (28.0-33.3); Mean Platelet Volume 9.7 fL (9.4-12.4); Monocytes # 0.4 K/mcL (0.0-1.3); Monocytes % 5.6 %; Neutrophils # 4.7 K/mcL (1.6-8.9); Platelet Count 191 K/mcL (140-400); Red Blood Count 2.78 M/mcL (3.82-4.97); Red Cell Distribution Width 14.3 % (11.5-14.5); Segmented Neutrophils % 64.2 %; White Blood Count 7.4 K/mcL (4.3-11.1)
[2021-09-06 04:07] LABS: Alanine Aminotransferase 8 Units/L (7-52); Albumin 3.2 g/dL (3.5-5.7); Albumin/Globulin Ratio 1.5 (1.1-2.2); Alkaline Phosphatase 47 Units/L (34-104); Aspartate Amino Transferase 11 Units/L (13-39); BUN/Creatinine Ratio 16 (6-26); Bilirubin,Total 0.7 mg/dL (0.3-1.0); Blood Urea Nitrogen 11 mg/dL (6-20); Calcium 8.6 mg/dL (8.6-10.3); Carbon Dioxide 26 mEq/L (23-29); Chloride 105 mEq/L (98-107); Globulin 2.1 g/dL (2.4-3.5); Glucose 205 mg/dL (70-105); Osmolality,Calculated 293 (280-300); Potassium 3.6 mEq/L (3.5-5.1); Sodium 139 mEq/L (136-145); Total Protein 5.3 g/dL (6.4-8.9); eGFR For African Americans > 60 (> 60); eGFR For Non-African Americans > 60 (> 60)
[2021-09-06] MEDS: Insulin LISPRO 300 UNITS/3 ML VIAL SUBQ SCH ×3 (06:26→18:31)
[2021-09-06] MEDS: Pantoprazole 40 MG VIAL IVP SCH ×2 (06:51→18:31)
[2021-09-06 08:24] LABS: Hematocrit 26.2 % (35.3-44.9); Hemoglobin 8.5 g/dL (11.5-15.4)
[2021-09-07] MEDS: Insulin LISPRO 300 UNITS/3 ML VIAL SUBQ SCH ×4 (00:37→16:50)
[2021-09-07 01:51] LABS: Hematocrit 24.2 % (35.3-44.9); Hemoglobin 7.8 g/dL (11.5-15.4); Mean Corpuscular HGB Conc 32.2 g/dL (31.6-35.5); Mean Corpuscular Hemoglobin 29.4 pg (28.0-33.3); Mean Corpuscular Volume 91.3 fL (83.0-100.0); Mean Platelet Volume 9.8 fL (9.4-12.4); Platelet Count 194 K/mcL (140-400); Red Blood Count 2.65 M/mcL (3.82-4.97); Red Cell Distribution Width 14.3 % (11.5-14.5); White Blood Count 6.8 K/mcL (4.3-11.1)
[2021-09-07 02:11] LABS: Alanine Aminotransferase 9 Units/L (7-52); Albumin/Globulin Ratio 1.3 (1.1-2.2); Alkaline Phosphatase 48 Units/L (34-104); Aspartate Amino Transferase 15 Units/L (13-39); BUN/Creatinine Ratio 13 (6-26); Bilirubin,Total 0.5 mg/dL (0.3-1.0); Blood Urea Nitrogen 8 mg/dL (6-20); Calcium 8.8 mg/dL (8.6-10.3); Carbon Dioxide 28 mEq/L (23-29); Chloride 105 mEq/L (98-107); Globulin 2.3 g/dL (2.4-3.5); Glucose 121 mg/dL (70-105); Osmolality,Calculated 288 (280-300); Potassium 3.3 mEq/L (3.5-5.1); Sodium 139 mEq/L (136-145); Total Protein 5.3 g/dL (6.4-8.9); eGFR For African Americans > 60 (> 60); eGFR For Non-African Americans > 60 (> 60)
[2021-09-07] MEDS: Pantoprazole 40 MG VIAL IVP SCH ×2 (07:58→18:42)
[2021-09-07] MEDS ORDERED: 0.9 % Sodium Chloride 250 ML ONE ×2 (10:56→18:00)
[2021-09-08] MEDS: Insulin LISPRO 300 UNITS/3 ML VIAL SUBQ SCH ×2 (01:02→06:21)
[2021-09-08 04:50] LABS: Basophils % 0.3 %; Eosinophils # 0.1 K/mcL (0.0-0.6); Hematocrit 29.4 % (35.3-44.9); Immature Granulocytes % 1.1 % (0-4); Lymphocytes # 1.4 K/mcL (0.6-4.6); Lymphocytes % 21.4 %; Mean Corpuscular HGB Conc 32.3 g/dL (31.6-35.5); Mean Corpuscular Hemoglobin 29.2 pg (28.0-33.3); Mean Corpuscular Volume 90.5 fL (83.0-100.0); Mean Platelet Volume 9.8 fL (9.4-12.4); Monocytes # 0.4 K/mcL (0.0-1.3); Monocytes % 5.3 %; Neutrophils # 4.6 K/mcL (1.6-8.9); Platelet Count 207 K/mcL (140-400); Red Blood Count 3.25 M/mcL (3.82-4.97); Red Cell Distribution Width 14.9 % (11.5-14.5); Segmented Neutrophils % 69.9 %; White Blood Count 6.6 K/mcL (4.3-11.1)
[2021-09-08 04:52] LABS: Hemoglobin 9.5 g/dL (11.5-15.4)
[2021-09-08 05:12] LABS: Alanine Aminotransferase 10 Units/L (7-52); Albumin 3.3 g/dL (3.5-5.7); Albumin/Globulin Ratio 1.3 (1.1-2.2); Alkaline Phosphatase 53 Units/L (34-104); Aspartate Amino Transferase 15 Units/L (13-39); BUN/Creatinine Ratio 13 (6-26); Bilirubin,Total 0.6 mg/dL (0.3-1.0); Blood Urea Nitrogen 10 mg/dL (6-20); Calcium 8.8 mg/dL (8.6-10.3); Carbon Dioxide 28 mEq/L (23-29); Chloride 104 mEq/L (98-107); Globulin 2.6 g/dL (2.4-3.5); Glucose 180 mg/dL (70-105); Osmolality,Calculated 290 (280-300); Potassium 3.6 mEq/L (3.5-5.1); Sodium 138 mEq/L (136-145); Total Protein 5.9 g/dL (6.4-8.9); eGFR For African Americans > 60 (> 60); eGFR For Non-African Americans > 60 (> 60)
[2021-09-08] MEDS: Pantoprazole 40 MG VIAL IVP SCH (06:21)
[2021-09-08 10:28] VITALS: BP 123/83; PULSE 103; TEMP 98.1; O2SAT 95
== END 2021-09-08 13:31 | disposition home or self-care (01) | DRG 377 ==
LOC: EMEROOARM 23:02 → ICNU 23:02 → SUATTDRO 09-03 02:33 → ICNU 09-03 03:32 → 2NNU 09-03 15:47 → SUATTDRO 09-04 16:42 → 3BNU 09-07 10:39
PROVIDERS: ADMIT Internal Medicine; ATTEND Registered Nurse